=== PATIENT | male | born 1990 | race Caucasian/White ===

== ENCOUNTER 2025-10-02 19:32 | Emergency (ER) | payer MEDICARE, MEDICAID, SELFPAY ==
--- OUTSIDE RECORDS SUMMARY | 2025-09-28 01:27 | XMS_ITS | Encounter Summary ---
Author Organization [facility] Address [address] [place] [address] Care Team Providers Care Accounting Clerk Name Role Phone Unknown, Provider Primary Care Provider Unava ilable Reason for Visit * Reason Comments Wound Infection * Auth/Cert (Routine) Specialty Diagnoses / Procedures Referred By Contac t Referred To Contact Diagnoses . Procedures , Referral ID Status Reason Start Date Expiration Date Visits Re quested Visits Authorized [id number] 1 1 Encounter Details Date Type Department Care Team (Late st Contact Info) Description 09/28/2025 1:27 AM EST - 09/28/2025 12:35 PM [facility] Hospital Encounter [facility] Emergency Department [address] [place] [address] Bettina Zavala MD [address] [place] [id number] Van Arroyo MD [address] [address] Suicidal ideation (Primary Dx); Open wound of right heel, initial encounter; IVDU (intravenous drug user); Chest pain, unspecified type; Schizoaffective disorder, unspecified type ([facility]) Discharge Disposition: Psychiatric Hospital Social History Tobacco Use Types Packs/Day Years Used Date Smoking Tobacco: Never Assessed Tobacco Cessation:Counseling Given: Not Answered Comments:Unable to assess as patient is minimally engaged in evaluation. Humiliation, Afraid, Rape, and Kick questionnair e Answer Date Recorded Within the last year, have y ou been afraid of your partner or ex-partner? Yes 09/28/2025 Emotionally Abused Not on file 09/28/2025 Physically Abused Not on file 09/28/2025 Sexually Abused Not on file 09/28/2025 Overall Financial Resource Strain (CARDIA) Answe r Date Recorded How hard is it for you to pa y for the very basics like food, housing, medical care, and heating? Very hard 09/28/2025 Hunger Vital Sign Answer Date Recorded Within the past 12 months, y ou worried that your food would run out before you got the money to buy more. Sometimes true Ran Out of Food in the Last Year Not on file 09/28/2025 PRAPARE - Transportation Answer Date Re corded In the past 12 months, has l ack of transportation kept you from medical appointments or from getting medications? Yes 09/06 In the past 12 months, has l ack of transportation kept you from meetings, work, or from getting things needed for daily living? Yes 09/28/2025 Housing Stability Vital Sign Answer Marco A e Recorded In the last 12 months, was t here a time when you were not able to pay the mortgage or rent on time? Yes 09/28/2025 Number of Times Moved in the Last Year Not on fi le 09/28/2025 At any time in the past 12 m [facility], were you homeless or living in a prison (including now)? Yes 09/28/2025 [facility] Utilities Answer Date Recorded In the past 12 months has th e electric, gas, oil, or water company threatened to shut off services in your home? Already shut off 09/28/2025 Food Insecurity Answer Date Recorded Within the past 12 months, y ou worried that your food would run out before you got the money to buy more. Sometimes true Ran Out of Food in the Last Year Not on file 09/28/2025 Intimate Partner Violence Answer Date R ecorded Emotionally Abused Not on file 09/28/2025 Within the last year, have y ou been afraid of your partner or ex-partner? Yes 09/28/2025 Physically Abused Not on file 09/28/2025 Sexually Abused Not on file 09/28/2025 Housing Stability Answer Date Recorded Unstable Housing in the Last Year Not on file 09/28/2025 In the last 12 months, was t here a time when you were not able to pay the mortgage or rent on time? Yes 09/28/2025 [address] of [address] Lived in the Last Year Not on f ile 09/28/2025 Sex and Gender Information Value Date Recorded Sex Assigned at Male 09/28/2025 2:35 AM EST Legal Sex Male 3:48 PM EDT Gender Identity Male 09/28/2025 2:35 AM EST Sexual Orientation Straight 09/28/2025 2: 35 AM EST documented as of this encounter Last Filed Vital Signs Vital Sign Reading Time Taken Comments Blood Pressure 104/73 09/28/2025 7:51 AM EST Pulse 71 09/28/2025 7:51 AM EST Temperature 36.5 C (97.7 F) 09/28/2025 7:51 AM EST Respiratory Rate 16 09/28/2025 7:51 AM EST Oxygen Saturation 99% 09/28/2025 7:51 AM EST Inhaled Oxygen Concentration - - Weight - - Height - - Body Mass Index - - documented in this encounter Progress Notes * Joo Olsen - 09/28/2025 11:33 AM EST Behavioral Health Crisis Consult- Contact Note Patient: Hal Ennis : 1990 Admit Date: 09/28/2025 Date of Consult: 09/28/2025 Time of Consult: 11:33 AM Narrative: Patient: Hal Villarreal Accepting Facility: [facility] Facility Address: [address] [place] [address] Accepting MD: Dr Mendoza Arrival Time: next available Nurse to Nurse Report: all set Other Labs or Needs: N/A HCP/Guardian (if applicable): N/A Reason for Section 12: SI Information Given To: Via secure chat * Marietta Blackwell - 09/28/2025 8:48 AM EST Behavioral Health Crisis Consult- Contact Note Patient: Hal Ennis : 1990 Admit Date: 09/28/2025 Date of Consult: 09/28/2025 Time of Consult: 8:48 AM Narrative: Bed Search Inpatient Unit Referral Date Referral Time Began Review Date Began Review Time Accepted Date Accepted Time Decline Date Decline Time Reason If Decline Comment [facility] Accessible 09/28/25 8:05 AM EST no appropriate beds [facility] 09/28/25 8:05 AM EST [facility] Accessible 09/28/25 8:42 AM EST [facility] 09/28/25 8:42 AM EST [facility] 09/28/25 8:46 AM EST [facility] Accessible 09/28/25 8:46 AM EST [facility] 09/28/25 8:46 AM EST [facility] Accessible 09/28/25 8:46 AM EST [facility] Accessible 09/28/25 8:46 AM EST [facility] 09/28/25 8:46 AM EST [facility] Accessible 09/28/25 8:46 AM EST [facility] Accessible 09/28/25 8:46 AM EST [facility] Accessible 09/28/25 8:46 AM EST [facility] 09/28/25 8:46 AM EST [facility] 09/28/25 8:47 AM EST documented in this encounter Consult Notes * Odalys Granado [facility] - 09/28/2025 7:26 AM EST Behavioral Health Crisis Consult - Initial Assessment Patient: Hal Ennis : 1990 Admit Date: 09/28/2025 Date of Consult: 09/28/2025 Time of Consult: 7:26 AM Consult Requested by: Van Arroyo MD Reason for Consult: Reason for Consult: SI with plan to OD Chief Complaint Patient presents with Wound Infection History of Present Illness: Patient is a 35 y.o. male with past medical and psychiatric history as listed who presented to the hospital on 09/28/2025 for Wound Infection. Behavioral Health is consulted for +SI with plan to OD. The patient endorses CAH in addition to SI with plan to OD on illicit drugs. Prior SA via OD in May of 2025. Medical History: has no past medical history on file. has no past surgical history on file. Psychiatric History: History of psychiatric illness?: Yes History of suicidal ideation?: Yes History of non-suicidal self injury?: No History of interpersonal aggression?: No History of past ROBIN?: Yes Treatment History?: Yes Inpatient Treatment:: Inpatient Psych Current Providers?: No Collateral Contact: No Explain:: Patients provided collateral contact is the [place], [place] police department. Home Medications: Prescriptions Prior to Admission[1] Current Medications: Scheduled Medications[2] Current PRN: PRN Medications[3] Allergies: Patient has no known allergies. Substance Use History Alcohol: Substance and Sexual Activity Alcohol Use Not on file Alcohol Details Questions Responses Alcohol longest time sober Unable to assess as patient is minimally engaged in evaluation. In the past 12 months,have you had 5 or more drinks(men)/4 or more drinks (women) containing alcohol in one day?: No Tobacco: has no history on file for tobacco use. E-Cigarette/Vaping Devices Questions Responses Other Unable to assess as patient is minimally engaged in evaluation. Other: reports current drug use. Drugs: Benzodiazepines and Heroin. Addiction/Substance Use Substances last used: Within past 12 months In the past year, have you ever used drugs more than you wanted to?: Yes In the past year, have you ever felt you wanted or needed to cut down on your drug use?: Yes Prior treatment for addiction/substance use?: Yes Name/Facility Date Treatment Type [facility] May 2025 Inpatient Longest period of sobriety: 2 years - [id number] per chart records. Significant factors: Living with others who are active Describe significant factors: Patient is currently homeless, unsheltered. History of withdrawal symptoms: Agitation/Irritability, Anxiety Overdose history: Other (Comment) Describe overdose history: Details limited as patient is minimally engaged in evaluation. Relapse pattern: Frequent Consequences of addiction/substance use: Family, Medical, Physical, Social Have you ever witnessed an overdose?: No Have you ever administered Narcan?: No Have you had thoughts you might have a gambling problem, or been told you might?: no gambling addiction Additional comments about addiction/substance use: Details limited as patient is minimally engaged in evaluation. Prescription Medications: In the past 12 months,have you used any prescription medications just for the feeling, more than prescribed or that were no prescribed for you?: Yes Types of Medications:: Benzodiazepines Use/ frequency per week:: Details limited as patient is minimally engaged in evaluation. Substances: In the past 12 months, have you used any drugs?: Yes Drugs used:: Heroin Use/ frequency per week:: Details limited as patient is minimally engaged in evaluation. Medical and Psychiatric Consequences: Medical/Psychiatric Consequences:: Withdrawl symptoms Psychosocial Consequences: Psychosocial consequences:: Housing, Mental health, Family Social History: See below. Socioeconomic History Marital status: Single Number of children: 2 Social History Narrative Patient is currently homeless, unsheltered. Prior records indicate that he has one adult child and one minor child whom is in foster care. Employment Status: Data Unavailable Type of Residence: Homeless Children?: Yes Children's Age(s): One adult, one minor child whom is in foster care. Legal Issues (*Add to Legal History Navigator): Denies History: History [place] status: No Personal History: History of trauma/significant life events/NIKHIL?: Yes has no history on file for sexual activity. Family History: Family History[4] Family history of psychiatric illness?: No Family history of ROBIN?: No Family history of suicidal ideation, attempt or completed suicide?: No Physical Exam: Patient Vitals for the past 24 hrs: BP Temp Temp src Pulse Resp SpO2 09/28/25 0136 134/75 97.7 ??F (36.5 ??C) Oral 90 (!) 22 100 % Mental Status Exam: Mental Status Exam General Appearance: Appears stated age. Disheveled. Level of Consciousness: Lethargic. Orientation: Oriented to person and place. Attitude and Behavior: Disengaged. Eye Contact: Eye contact intermittent. Psychomotor Activity: Normal. Speech: Slow and soft. Mood: Patient description of mood: Depressed. Affect: Flat. Thought Process and Associations: Unable to asses. Thought Content: Positive for suicidal ideation, suicidal plan, suicidal intent, suicidal means, actively hallucinating, auditory hallucinations and command hallucinations. Attention Span: Unable to attend. Memory: Unable to assess. Fund of Knowledge: Unable to assess. Cognition: Unable to assess. Insight: Poor. Judgment: Poor. Labs, Imaging & Other Studies: Laboratory: Recent lab results have been reviewed and are notable for UTOX ordered. Results for orders placed or performed during the hospital encounter of 09/28/25 (from the past 24 hours) Basic Metabolic Panel Result Value Ref Range Sodium 142 136 - 145 mmol/L Potassium 3.6 3.5 - 5.1 mmol/L Chloride 106 98 - 107 mmol/L Total CO2/Bicarbonate 26 22 - 29 mmol/L Anion Gap 10 2 - 15 mmol/L BUN 25 (H) 6 - 20 mg/dL Creatinine, Blood 0.90 0.70 - 1.20 mg/dL Glucose, Blood 116 (H) 74 - 109 mg/dL Calcium 9.1 8.6 - 10.0 mg/dL Estimated GFR(CKD-EPI) 113 >=60 mL/min/BSA CBC and Differential Result Value Ref Range WBC 10.99 4.00 - 11.00 K/uL RBC 4.73 4.30 - 5.80 M/uL Hemoglobin 13.9 13.5 - 17.5 g/dL Hematocrit 42.5 41.0 - 53.0 % MCV 90 80 - 94 fL MCH 29.4 26.0 - 33.0 pg MCHC 32.7 31.0 - 37.0 g/dL RDW 13.8 11.5 - 14.5 % Platelet Count 239 150 - 400 K/uL Nucleated RBC 0 <=0 #/100 WBC Neutrophil 71.0 30.0 - 85.0 % Lymphocyte 18.1 15.0 - 50.0 % Monocyte 7.6 2.0 - 12.0 % Eosinophil 2.5 0.0 - 5.0 % Basophil 0.3 0.0 - 2.0 % Immature Granulocyte ([place], Myelo, Promyelocyte) 0.5 0.0 - 1.0 % Absolute Neutrophil Count 7.81 1.20 - 9.30 K/uL Absolute Lymphocyte Count 1.99 0.60 - 5.50 K/uL Absolute Monocyte Count 0.83 0.08 - 1.30 K/uL Absolute Eosinophil Count 0.28 0.00 - 0.68 K/uL Absolute Basophil Count 0.03 0.00 - 0.20 K/uL Absolute Immature Granulocyte ([place], Myelo, Promyelocyte) 0.05 0.00 - 0.10 K/uL Blood Bank Hold Tube Result Value Ref Range [place] Top Tube Received Magnesium Result Value Ref Range Magnesium, Blood 1.9 1.6 - 2.6 mg/dL Hs-Troponin (with reflex 0, 1, +/-3 hours) Result Value Ref Range Troponin T HS <6 <=22 ng/L C-Reactive Protein Result Value Ref Range C-Reactive Protein (CRP) 9.1 (H) <5.0 mg/L Toxicology Screen, Plasma Result Value Ref Range Acetaminophen Result,Blood <5 <=30 ug/mL Alcohol <10 <=10 mg/dL Salicylate Level, Blood <1 <=10 mg/dL Covid/Flu/RSV (Rapid) Result Value Ref Range Coronavirus SARS-CoV-2 Not Detected Not Detected Influenza A Not Detected Not Detected by PCR Influenza B Not Detected Not Detected by PCR RSV by PCR Not Detected Not Detected by PCR EKG: No studies were reviewed. C-SSRS Screener and SAFE-T: [place] Suicide Severity Rating Scale (C-SSRS) Screener 1) In the past month, have you wished you were or wished you could go to sleep and not wake up?: Yes If yes, describe (Past 1 Month): attempted OD 2) In the past month, have you actually had any thoughts of killing yourself?: Yes 3) Have you been thinking about how you might do this? (Past 1 Month): Yes 4) Have you had these thoughts and had some intention of acting on them or do you have some intention of acting on them? (Past 1 Month): Yes 5) Have you started to work out or worked out the details of how to kill yourself? Did you intend to carry out this plan? (Past 1 Month): Yes 6a.) Have you ever done anything, started to do anything, or prepared to do anything to end your life?: Yes If yes, describe: attempted OD 6b.) If 'Yes', was it within the past 3 months?: Yes C-SSRS Screener Risk Level: High History of Psychiatric Diagnosis:: ADHD, Alcohol/Substance Use Disorder, Mood disorder, Psychotic disorder Presenting Symptoms: Anhedonia, Command hallucinations, Hopelessness or despair, Impulsivity, Psychosis Family History: Unable to assess Precipitants/ Stressors/ Interpersonal: Homelessness, History of trauma, Precipitating events or recent losses leading to humiliation, shame, and/or despair (e.g. loss of relationship, financial or health status... real or anticipated), Recent substance intoxication or withdrawal, Social isolation Change in Treatment: Not receiving treatment, Non-compliant with treatment Access to lethal methods: Ask specifically about presence or absence of a firearm in the home or ease of accessing: No Step 2: Identify Protective Factors (Protective factors may not counteract significant acute suicide risk factors) Internal Protective Factors: None External Protective Factors: None Step 3: Specific questioning about Thoughts, Plans, and Suicidal Intent - (see Step 1 for Ideation Severity and Behavior) In the past 1 month, how many times have you had these thoughts?: Daily or almost daily In the past 1 month, when you have the thoughts, how long do they last?: 4-8 hours/most of day In the past 1 month, could/can you stop thinking about killing yourself or wanting to if you want to?: Unable to control thoughts In the past 1 month, are there things - anyone or anything (e.g., family, religious, pain of ) - that stopped you from wanting to or acting on thoughts of suicide?: Deterrents most likely didnot stop you In the past 1 month, what reasons did you have for thinking about wanting to or killing yourself? Was it to end the pain or stop the way you were feeling, or was it to get attention, revenge, or reaction from others? Or both?: Completely to end or stop the pain (you couldn't go on living with the pain you were feeling) Suicidal Ideation Intensity Total Score: 22 Step 4: Guidelines to Determine Level of Risk and Develop Interventions to LOWER Risk Level Suicide Risk Level Determined by the Clinician : High Suicide Risk Rationale for Suicide Risk Level: High suicide risk clinically indicated at the present time. Management of Suicide Risk: Because the patient is actively suicidal, the patient will be further assessed for psychiatric inpatient level of care Assessment: Patient is a 35 y.o. male with past medical and psychiatric history as above now presents with SI with plan to OD. The patient presented to [facility] ED via EMS from the [facility] secondary to foot pain, heart palpitations, and endorsed CAH/SI with plan to OD. The patient carries a historical diagnosis of Schizoaffective Disorder with a prior history of inpatient psychiatric hospital admissions. The patient denies HI/VH/SIB. He denies recent trauma and legal issues. He does state that he has been overusing illicit Opiates and Benzodiazepines, however he is unable to quantify how much he is using or how often he is using at this time. The patient presents as minimally engaged in the evaluation. He presents with flat affect and depressed mood. Insight and judgment present as poor. The patient is unable to engage in safety planning.He states I do not want to be here. He states that he experiences CAH that say I do not belong here and I should be . The patient continues to endorse active SI with plan to OD. Per his record, he did attempt suicide in May of 2025 via overdose on Hydroxyzine and Zyprexa. The patient is not maintained on any medication assisted treatment for Opiate abuse. The patient presents as AOX2, his eye contact is intermittent. Speech and language is soft and slow. Concentration is poor - he is able to intermittently attend. The patients listed collateral contact is the [place] police department, however they are not currently involved in the patients care,thus no collateral was obtained. At this time the patient meets criteria for Section 12 due to SI with plan to OD and reported CAH. He does not present with any overt psychotic symptoms at this time. Clinical formulation supported by ED MD Van Arroyo and Clinical Director Business Integration Holli ALBRECHT. Recommendations: [facility] Intervention and Stabilization Services Requested: Psych consult for med stabilization, Psych consult for diagnostic clarification, Care coordination/peer support service, and ROBIN consult Disposition Recommendation: Inpatient Level of Care Patient meets criteria for opioid use disorder (OUD): No Behavioral Health Diagnosis: F25.9 Schizoaffective Disorder, Unspecified F19.10 Polysubstance Use Disorder Duration: Time Spent (min): 120 Discussed with Excelsior Cutter: Yes, Excelsior Cutter Name: Holli ALBRECHT Discussed with Medical Team: Yes . ED MD Van Arroyo Signed by: TRENA Cevallos [1] (Not in a hospital admission) [2] doxycycline monohydrate, 100 mg, Oral, BID [3] [4] Family History Family history unknown: Yes documented in this encounter ED Notes * Charline Soler RN - 09/28/2025 11:57 AM EST Pt eating lunch in room, in nad. Aware that he will be transferred via next available ambulance. Verbalized understanding. Denies any further needs at this time. 1:1 sitter in direct LOS of pt. Pt calm, cooperative, pleasant. * Charline Soler RN - 09/28/2025 10:31 AM EST Pt resting in stretcher comfortably, eyes closed, visible chest rise and fall. Pt cooperative with care thus far on this shift. Compliant with medications and cooperative with all care. Vitals stableat last check. Able to make needs known. Safety precautions maintained, 1:1 observer in direct LOS. * TRENA Cevallos - 09/28/2025 8:09 AM EST Notified MARIANA Aguero and [facility] via [employer] chat that this patient is boarding for [facility]. * Yasmeen Triplett RN - 09/28/2025 1:35 AM EST [facility]. Pt reports 9/10 pain to R heel. Pt wasseen at [facility] yesterday for same issue where pt received doxycycline for infection. Pt endorses intermittent CP feeling like palpitations. * Frank Kenney MD - 09/28/2025 1:23 AM EST [facility] ED Provider Note Arrival Date: 09/28/2025 HISTORY OF PRESENT ILLNESS 34-year-old male with a past medical history of polysubstance abuse, endocarditis, bipolar affective disorder, presents to the ED for evaluation of 2 days of chest pain and right foot pain. Patient states he has had intermittent chest pain for the past year he was seen for this in the past and was told he has an abnormal heart rhythm. The current episode of chest pain began 2 days ago located across his chest. Patient also states that he had a painful blister on the heel of his right foot yesterday. Per pt, he was seen at [facility] yesterday for chest pain and was started on doxycycline. Patient states he is detoxing from benzodiazepines and planned to go to rehab tomorrow. He also reports SI with a plan to overdose, reports life stressors with his girlfriend. Patient reports a prior SI attempt1-1/2 months ago by overdosing on fentanyl. He denies any HI. PHYSICAL EXAM ED Triage Vitals [09/28/25 0136] BP Heart Rate Resp Temp SpO2 134/75 90 (!) 22 97.7 ??F (36.5 ??C) 100 % Physical Exam Constitutional: General: He is not in acute distress. HENT: Head: Normocephalic and atraumatic. Eyes: Extraocular Movements: Extraocular movements intact. Cardiovascular: Rate and Rhythm: Normal rate and regular rhythm. Pulmonary: Effort: Pulmonary effort is normal. No respiratory distress. Breath sounds: Normal breath sounds. Musculoskeletal: Cervical back: Normal range of motion. Comments: Diffuse right foot swelling. 5 x 5 cm area of erythema on the right heel with a central area of dried purulent material. See media. Neurological: Mental Status: He is alert. MEDICAL DECISION MAKING & ED COURSE Labs BASIC METABOLIC PANEL - Abnormal Result Value Ref Range Sodium 142 136 - 145 mmol/L Potassium 3.6 3.5 - 5.1 mmol/L Chloride 106 98 - 107 mmol/L Total CO2/Bicarbonate 26 22 - 29 mmol/L Anion Gap 10 2 - 15 mmol/L BUN 25 (*) 6 - 20 mg/dL Creatinine, Blood 0.90 0.70 - 1.20 mg/dL Glucose, Blood 116 (*) 74 - 109 mg/dL Calcium 9.1 8.6 - 10.0 mg/dL Estimated GFR(CKD-EPI) 113 >=60 mL/min/BSA C-REACTIVE PROTEIN - Abnormal C-Reactive Protein (CRP) 9.1 (*) <5.0 mg/L CBC AND DIFFERENTIAL - Normal WBC 10.99 4.00 - 11.00 K/uL RBC 4.73 4.30 - 5.80 M/uL Hemoglobin 13.9 13.5 - 17.5 g/dL Hematocrit 42.5 41.0 - 53.0 % MCV 90 80 - 94 fL MCH 29.4 26.0 - 33.0 pg MCHC 32.7 31.0 - 37.0 g/dL RDW 13.8 11.5 - 14.5 % Platelet Count 239 150 - 400 K/uL Nucleated RBC 0 <=0 #/100 WBC Neutrophil 71.0 30.0 - 85.0 % Lymphocyte 18.1 15.0 - 50.0 % Monocyte 7.6 2.0 - 12.0 % Eosinophil 2.5 0.0 - 5.0 % Basophil 0.3 0.0 - 2.0 % Immature Granulocyte ([place], Myelo, Promyelocyte) 0.5 0.0 - 1.0 % Absolute Neutrophil Count 7.81 1.20 - 9.30 K/uL Absolute Lymphocyte Count 1.99 0.60 - 5.50 K/uL Absolute Monocyte Count 0.83 0.08 - 1.30 K/uL Absolute Eosinophil Count 0.28 0.00 - 0.68 K/uL Absolute Basophil Count 0.03 0.00 - 0.20 K/uL Absolute Immature Granulocyte ([place], Myelo, Promyelocyte) 0.05 0.00 - 0.10 K/uL MAGNESIUM - Normal Magnesium, Blood 1.9 1.6 - 2.6 mg/dL HS TROPONIN T (REFLEX 1HR, 3HR) - Normal Troponin T HS <6 <=22 ng/L SARS COV2/INFLUENZA A/B AND RSV - Normal Coronavirus SARS-CoV-2 Not Detected Not Detected Influenza A Not Detected Not Detected by PCR Influenza B Not Detected Not Detected by PCR RSV by PCR Not Detected Not Detected by PCR Narrative: The Indisys Xpert?? SARS-CoV-2/ Flu/ RSV assay is intended for the qualitative detection of nucleicacid from SARS-CoV-2, Influenza A, Influenza B, and Respiratory Syncytial Virus. This assay has been authorized by the FDA under an Emergency Use Authorization (EUA) for use by clinical laboratories.Negative results must be combined with clinical observations and patient history. This assay has been authorized by the FDA under an Emergency Use Authorization (EUA) for use by clinical laboratories. TOXICOLOGY SCREEN, BLOOD - Normal Acetaminophen Result,Blood <5 <=30 ug/mL Alcohol <10 <=10 mg/dL Salicylate Level, Blood <1 <=10 mg/dL BLOOD BANK HOLD TUBE [place] Top Tube Received LIGHT BLUE TOP RED TOP MINT GREEN TOP LAVENDER TOP GOLD TOP DRUG SCREEN, URINE CBC AND DIFFERENTIAL Narrative: The following orders were created for panel order CBC and Differential. Procedure Abnormality Status --------- ------ CBC and Differential[[id number]] Normal Final result Please view results for these tests on the individual orders. RAINBOW DRAW Narrative: The following orders were created for panel order [place] Draw. Procedure Abnormality Status --------- ------ Blue Top[[id number]] In process Red Top[[id number]] In process Mint Green Top[[id number]] In process Lavender Top[[id number]] In process Gold Top[[id number]] In process Blood Bank Hold Tube[[id number]] Final result Please view results for these tests on the individual orders. XR Chest 1 Vw Portable XR Foot 3+ Vw Right XR Ankle 3+ Vw Right Independent Interpretation of ECG: Normal sinus rhythm at 84 bpm normal axis normal intervals no STelevations or depressions. No prior for comparison. 35-year-old male with a past medical history of polysubstance use, endocarditis, presents to the EDfor evaluation of 2 days of chest pain and right foot pain. Differential diagnosis includes ACS, endocarditis, GERD, cellulitis, osteomyelitis, abscess. Will obtain CBC BMP magnesium CRP urine and serum tox screen troponin, COVID flu RSV test chest x-ray as well as right foot and ankle radiographs.CBC and BMP are unremarkable. Elevated CRP of 9.1. Negative initial troponin. COVID flu and RSV arenegative. Radiographs of the right foot and ankle show no radiographic evidence of osteomyelitis. Chest x-ray is negative. Patient given Tylenol and Ativan 0.05. Will give doxycycline for heel wound.On reevaluation chest pain has resolved. Patient is medically cleared for psychiatric evaluation. Will sign out to a.m. team. [facility] Emergency Department Course: ED Course as of 09/28/25 0627 SunSep 28, 2025 0231 CBC and Differential [GJ] 0327 XR Chest 1 Vw Portable [GJ] 0327 XR Foot 3+ Vw Right [GJ] 0327 XR Ankle 3+ Vw Right [GJ] 0330 I independently reviewed and interpreted this patient's EKG and it shows nsr rate 84 normal ax/int. No stemi. [GJ] 0352 XR Chest 1 Vw Portable No imaging evidence of an acute cardiopulmonary process. [AH] 0548 Magnesium [GJ] 0549 C-Reactive Protein(!) [GJ] 0614 C-Reactive Protein (CRP)(!): 9.1 [AH] 0618 XR Ankle 3+ Vw Right Soft tissue defect of the heel. Diffuse soft tissue swelling about the foot, most prominent along the lateral forefoot, similar to slightly worsened since 09/18/2025. No radiographic evidence of osteomyelitis. If continued clinical concern, consider MRI examination of the foot. [AH] 0618 XR Chest 1 Vw Portable No imaging evidence of an acute cardiopulmonary process. [AH] 0618 XR Foot 3+ Vw Right [AH] ED Course User Index [AH] Frank Kenney MD [GJ] Bettina Zavala MD Clinical Impression Suicidal ideation (Primary) Open wound of right heel, initial encounter IVDU (intravenous drug user) Chest pain, unspecified type Frank Kenney MD Resident 09/28/25626 Frank Kenney MD Resident 09/28/25626 documented in this encounter Plan of Treatment Pending Results Name Type Priority Associated Diagnoses Date /Time [place] Draw Lab Panel STAT 09/28/2025 2 :26 AM EST Blue Top Lab STAT 09/28/2025 2:2 6 AM EST Red Top Lab STAT 09/28/2025 2:2 6 AM EST Mint Green Top Lab STAT 09/28/2025 2:26 AM EST Lavender Top Lab STAT 09/28/2025 2 :26 AM EST Gold Top Lab STAT 09/28/2025 2:2 6 AM EST Scheduled Orders Name Type Priority Associated Diagnoses Orde r Schedule [place] Draw Lab Panel STAT Once for 1 O ccurrences starting 09/28/2025 until 09/28/2025 Blue Top Lab Timed Once for 1 Occ urrences starting 09/28/2025 until 09/28/2025, 1 completed Red Top Lab Timed Once for 1 Occ urrences starting 09/28/2025 until 09/28/2025, 1 completed [place] Top Lab Timed Once for 1 Occurrences starting 09/28/2025 until 09/28/2025, 1 completed Lavender Top Lab Timed Once for 1 O ccurrences starting 09/28/2025 until 09/28/2025, 1 completed Gold Top Lab Timed Once for 1 Occ urrences starting 09/28/2025 until 09/28/2025, 1 completed documented as of this encounter Procedures Procedure Name Priority Date/Time Associated Diagnosis Comments XR PORTABLE CHEST 1 VW STAT 09/28/2025 3:04 AM EST SARS COV2/INFLUENZA A/B AND RSV STAT 09/28/2025 2:58 AM EST XR FOOT 3+ VW RIGHT STAT 09/28/2025 2 :57 AM EST XR ANKLE 3+ VW RIGHT STAT 09/28/2025 2:57 AM EST ECG 12-LEAD STAT 09/28/2025 2:38 AM EST HS TROPONIN T (REFLEX 1HR, 3HR) Routine 09/28/2025 2:26 AM EST CBC AND DIFFERENTIAL STAT 09/28/2025 2:26 AM EST TOXICOLOGY SCREEN, BLOOD STAT 09/28/2025 2:26 AM EST BLOOD BANK HOLD TUBE STAT 09/28/2025 2:26 AM EST CBC AND DIFFERENTIAL STAT 09/28/2025 2:26 AM EST C-REACTIVE PROTEIN STAT 09/28/2025 2: 26 AM EST MAGNESIUM Routine 09/28/2025 2:26 AM EST BASIC METABOLIC PANEL STAT 09/28/2025 2:26 AM EST documented in this encounter Results * XR Chest 1 Vw Portable (09/28/2025 3:04 AM EST) Anatomical Region Laterality Modality Chest Digital Radiogra phy 09/28/2025 3:23 AM EST Impressions 09/28/2025 6:50 AM EST No imaging evidence of an acute cardiopulmonary process. I, the attending physician, attest that I have performed and/or supervised the resident for the ellsworth and critical components of this procedure. I have personally reviewed the images pertinent to this examination and agree with the interpretation. Reported By: Luke Crowley M.D. ([id number]) Signed By: Angel Luis Pina M.D. ([id number]) Report Date/Time: 09/28/2025 6:50 AM Report ID: [id number] Narrative 09/28/2025 6:50 AM EST RESPONSIBLE TECHNICAL COMMUNICATOR: Angel Luis Pina M.D. EXAMINATION: XR CHEST 1 VW PORTABLE CLINICAL INDICATION: Chest pain TECHNIQUE: AP upright projection of the chest obtained portably at 3:01. COMPARISON: None available FINDINGS: Lungs: There is no consolidation or pulmonary edema. Relative density of the left apex is favored to reflect superimposed costochondral junction and soft tissues. Pleura: There is no pleural effusion or pneumothorax. Heart/Mediastinum: The cardiomediastinal silhouette is unremarkable. Bones/Soft Tissues: Normal for age. Procedure Note Lacho Pina MD - 09/28/2025 RESPONSIBLE TECHNICAL COMMUNICATOR: Angel Luis Pina M.D. EXAMINATION: XR CHEST 1 VW PORTABLE CLINICAL INDICATION: Chest pain TECHNIQUE: AP upright projection of the chest obtained portably at 3:01. COMPARISON: None available FINDINGS: Lungs: There is no consolidation or pulmonary edema. Relative density ofthe left apex is favored to reflect superimposed costochondral junctionand soft tissues. Pleura: There is no pleural effusion or pneumothorax. Heart/Mediastinum: The cardiomediastinal silhouette is unremarkable. Bones/Soft Tissues: Normal for age. IMPRESSION: No imaging evidence of an acute cardiopulmonary process. I, the attending physician, attest that I have performed and/or supervised the resident for the ellsworth and critical components of this procedure. I have personally reviewed the images pertinent to this examination and agree with the interpretation. Reported By: Luke Crowley M.D. ([id number]) Signed By: Angel Luis Pina M.D. ([id number]) Report Date/Time: 09/28/2025 6:50 AM Report ID: [id number] us Bettina Zavala MD IMG DIAGNOSTIC IMAGING OR DERABLES Final Result * Covid/Flu/RSV (Rapid) (09/28/2025 2:58 AM EST) Coronavirus SARS-CoV-2 Not Detected Not Detected 09/28/2025 3:39 AM EST [facility] Influenza A Not Detected Not Detected by PCR 09/28/2025 3:39 AM EST [facility] Influenza B Not Detected Not Detected by PCR 09/28/2025 3:39 AM EST [facility] RSV by PCR Not Detected Not Detected by PCR 09/28/2025 3:39 AM EST [facility] Respiratory SWAB OF INTERNAL NOSE / Unknown Collection / Unknown 09/28/2025 2:58 AM EST 09/28/2025 3:00 AM EST Narrative [facility] - 09/28/2025 3:39 AM EST The Indisys Xpert SARS-CoV-2/ Flu/ RSV assay is intended for the qualitative detection of nucleic acid from SARS-CoV-2, Influenza A, Influenza B, and Respiratory Syncytial Virus. This assay has been authorized by the FDA under an Emergency Use Authorization (EUA) for use by clinical laboratories. Negative results must be combined with clinical observations and patient history. This assay has been authorized by the FDA under an Emergency Use Authorization (EUA) for use by clinical laboratories. us Bettina Zavala MD BODY FLUIDS AND STOOLS OR DERABLES Final Result [facility] [address] [place] [address], [place] * XR Foot 3+ Vw Right (09/28/2025 2:57 AM EST) Anatomical Region Laterality Modality Foot Right Digital Radiogra phy 09/28/2025 3:16 AM EST Impressions 09/28/2025 6:51 AM EST Soft tissue defect of the heel. Diffuse soft tissue swelling about the foot, most prominent along the lateral forefoot, similar to slightly worsened since 09/18/2025. No radiographic evidence of osteomyelitis. If continued clinical concern, consider MRI examination of the foot. I, the attending physician, attest that I have performed and/or supervised the resident for the [place] and critical components of this procedure. I have personally reviewed the images pertinent to this examination and agree with the interpretation. Reported By: Luke Crowley M.D. ([id number]) Signed By: Angel Luis Pina M.D. ([id number]) Report Date/Time: 09/28/2025 6:51 AM Report ID: [id number] Narrative 09/28/2025 6:51 AM EST RESPONSIBLE TECHNICAL COMMUNICATOR: Angel Luis Pina M.D. EXAMINATION: XR ANKLE 3+ VW RIGHT; XR FOOT 3+ VW RIGHT CLINICAL INDICATION: Right foot swelling and infection TECHNIQUE: Three views of the right ankle. Three views of the right foot. COMPARISON: Outside right foot radiograph dated 09/18/2025. Outside CT of the right foot with intravenous contrast dated 09/18/2025 (report only). FINDINGS: The distal tibia and fibula, the tibiotalar joint and the talar dome are normal. The phalanges, metatarsal bones, tarsal bones, hindfoot and intervening joints are intact without erosive changes. There is diffuse soft tissue swelling about the foot, most prominent along the lateral forefoot, similar to slightly worsened since 09/18/2025. There is a soft tissue defect of the heel. No evidence of erosive change of the underlying calcaneus. Procedure Note Lacho Pina MD - 09/28/2025 RESPONSIBLE TECHNICAL COMMUNICATOR: Angel Luis Pina M.D. EXAMINATION: XR ANKLE 3+ VW RIGHT; XR FOOT 3+ VW RIGHT CLINICAL INDICATION: Right foot swelling and infection TECHNIQUE: Three views of the right ankle. Three views of the right foot. COMPARISON: Outside right foot radiograph dated 09/18/2025. Outside CT of the right foot with intravenous contrast dated 09/18/2025(report only). FINDINGS: The distal tibia and fibula, the tibiotalar joint and the talar dome arenormal. The phalanges, metatarsal bones, tarsal bones, hindfoot and interveningjoints are intact without erosive changes. There is diffuse soft tissue swelling about the foot, most prominent alongthe lateral forefoot, similar to slightly worsened since 09/18/2025. There is a soft tissue defect of the heel. No evidence of erosive changeof the underlying calcaneus. IMPRESSION: Soft tissue defect of the heel. Diffuse soft tissue swelling about thefoot, most prominent along the lateral forefoot, similar to slightlyworsened since 09/18/2025. No radiographic evidence of osteomyelitis. If continued clinical concern,consider MRI examination of the foot. I, the attending physician, attest that I have performed and/or supervised the resident for the ellsworth and critical components of this procedure. I have personally reviewed the images pertinent to this examination and agree with the interpretation. Reported By: Luke Crowley M.D. ([id number]) Signed By: Angel Luis Pina M.D. ([id number]) Report Date/Time: 09/28/2025 6:51 AM Report ID: [id number] Bettina Zavala MD IMG DIAGNOSTIC IMAGING OR DERABLES Final Result * XR Ankle 3+ Vw Right (09/28/2025 2:57 AM EST) Anatomical Region Laterality Modality Ankle Right Digital Radiogra phy 09/28/2025 3:16 AM EST Impressions 09/28/2025 6:51 AM EST Soft tissue defect of the heel. Diffuse soft tissue swelling about the foot, most prominent along the lateral forefoot, similar to slightly worsened since 09/18/2025. No radiographic evidence of osteomyelitis. If continued clinical concern, consider MRI examination of the foot. I, the attending physician, attest that I have performed and/or supervised the resident for the ellsworth and critical components of this procedure. I have personally reviewed the images pertinent to this examination and agree with the interpretation. Reported By: Luke Crowley M.D. ([id number]) Signed By: Angel Luis Pina M.D. ([id number]) Report Date/Time: 09/28/2025 6:51 AM Report ID: [id number] Narrative 09/28/2025 6:51 AM EST RESPONSIBLE TECHNICAL COMMUNICATOR: Angel Luis Pina M.D. EXAMINATION: XR ANKLE 3+ VW RIGHT; XR FOOT 3+ VW RIGHT CLINICAL INDICATION: Right foot swelling and infection TECHNIQUE: Three views of the right ankle. Three views of the right foot. COMPARISON: Outside right foot radiograph dated 09/18/2025. Outside CT of the right foot with intravenous contrast dated 09/18/2025 (report only). FINDINGS: The distal tibia and fibula, the tibiotalar joint and the talar dome are normal. The phalanges, metatarsal bones, tarsal bones, hindfoot and intervening joints are intact without erosive changes. There is diffuse soft tissue swelling about the foot, most prominent along the lateral forefoot, similar to slightly worsened since 09/18/2025. There is a soft tissue defect of the heel. No evidence of erosive change of the underlying calcaneus. Procedure Note Lacho Pina MD - 09/28/2025 RESPONSIBLE TECHNICAL COMMUNICATOR: Angel Luis Pina M.D. EXAMINATION: XR ANKLE 3+ VW RIGHT; XR FOOT 3+ VW RIGHT CLINICAL INDICATION: Right foot swelling and infection TECHNIQUE: Three views of the right ankle. Three views of the right foot. COMPARISON: Outside right foot radiograph dated 09/18/2025. Outside CT of the right foot with intravenous contrast dated 09/18/2025(report only). FINDINGS: The distal tibia and fibula, the tibiotalar joint and the talar dome arenormal. The phalanges, metatarsal bones, tarsal bones, hindfoot and interveningjoints are intact without erosive changes. There is diffuse soft tissue swelling about the foot, most prominent alongthe lateral forefoot, similar to slightly worsened since 09/18/2025. There is a soft tissue defect of the heel. No evidence of erosive changeof the underlying calcaneus. IMPRESSION: Soft tissue defect of the heel. Diffuse soft tissue swelling about thefoot, most prominent along the lateral forefoot, similar to slightlyworsened since 09/18/2025. No radiographic evidence of osteomyelitis. If continued clinical concern,consider MRI examination of the foot. I, the attending physician, attest that I have performed and/or supervised the resident for the ellsworth and critical components of this procedure. I have personally reviewed the images pertinent to this examination and agree with the interpretation. Reported By: Luke Crowley M.D. ([id number]) Signed By: Angel Luis Pina M.D. ([id number]) Report Date/Time: 09/28/2025 6:51 AM Report ID: [id number] Bettina Zavala MD IMG DIAGNOSTIC IMAGING OR DERABLES Final Result * ECG 12 lead, to be obtained, chest pain (09/28/2025 2:38 AM EST) Ventricular Heart Rate 84 BPM EKG B[facility] MUSE Atrial Heart Rate 84 BPM EKG [facility] NM Interval 132 ms EKG [facility] M[facility] QRSD Interval 92 ms EKG [facility] MUSE QT Interval 386 ms EKG [facility] MUSE QTC Interval 456 ms EKG B[facility] MUSE P [place] 56 degrees EKG BUR MUSE R [place] 77 degrees EKG BUR MUSE T Wave [place] 42 degrees EKG BUR MUSE 09/28/2025 2:38 AM EST 09/29/2025 5:01 PM EST Narrative EKG B[facility] MUSE - 09/29/2025 5:01 PM EST Normal sinus rhythm Normal ECG No previous ECGs available Confirmed by Ezequiel Huston ([id number]) on 09/29/2025 5:01:28 PM Procedure Note Ezequiel Huston MD - 09/29/2025 Normal sinus rhythm Normal ECG No previous ECGs available Confirmed by Ezequiel Huston ([id number]) on 09/29/2025 5:01:28 PM Bettina Zavala MD ECG ORDERABLES Final Res ult EKG BUR MUSE [address] [place] [id number] * Toxicology Screen, Plasma (09/28/2025 2:26 AM EST) Acetaminophen Result,Blood <5 <=30 ug/mL 09/28/2025 5:46 AM EST [facility] Alcohol <10 <=10 mg/dL 09/28/2025 5:46 AM EST [facility] Salicylate Level, Blood <1 <=10 mg/dL 09/28/2025 5:46 AM EST [facility] Blood PERIPHERAL BLOOD SPECIMEN / Unknown Venipuncture / Unknown 09/28/2025 2:26 AM EST 09/28/2025 3:54 AM EST us Bettina Zavala MD LAB BLOOD ORDERABLES Leyla l Result Performing Organization Address City/[facility]/ZIP Co de Phone Number [facility] [address] [place] [address], [place] * (ABNORMAL) C-Reactive Protein (09/28/2025 2:26 AM EST) C-Reactive Protein (CRP) 9.1(H) <5.0 mg/L 09/28/2025 5:46 AM EST [facility] Blood PERIPHERAL BLOOD SPECIMEN / Unknown Venipuncture / Unknown 09/28/2025 2:26 AM EST 09/28/2025 3:54 AM EST us Bettina Zavala MD LAB BLOOD ORDERABLES Leyla l Result Performing Organization Address [facility] Co de Phone Number [facility] [address] [place] [id number], [place] * Hs-Troponin (with reflex 0, 1, +/-3 hours) (09/28/2025 2:26 AM EST) Troponin T HS <6 <=22 ng/L 09/28/2025 5:52 AM EST [facility] Blood PERIPHERAL BLOOD SPECIMEN / Unknown Venipuncture / Unknown 09/28/2025 2:26 AM EST 09/28/2025 3:54 AM EST us Bettina Zavala MD LAB BLOOD ORDERABLES Leyla l Result Performing Organization Address City/[facility]/ZIP Co de Phone Number [facility] [address] [place] [address], [place] * Magnesium (09/28/2025 2:26 AM EST) Pathologist [facility] Magnesium, Blood 1.9 1.6 - 2.6 mg/dL 09/28/2025 5:46 AM EST [facility] Blood PERIPHERAL BLOOD SPECIMEN / Unknown Venipuncture / Unknown 09/28/2025 2:26 AM EST 09/28/2025 3:54 AM EST Bettina Zavala MD LAB BLOOD ORDERABLES Leyla l Result [facility] [address] [place] [address], [place] * Blood Bank Hold Tube (09/28/2025 2:26 AM EST) Pathologist [facility] [place] Top Tube Received 09/28/2025 2:58 AM EST [facility] Blood Venipuncture / Unknown 09/28/2025 2:26 AM EST 09/28/2025 2:58 AM EST Bettina Zavala MD BLOOD BANK TEST ORDERABLE S Final Result Performing Organization Address City/[facility] Co de Phone Number [facility] [address] [place] [address], * CBC and Differential (09/28/2025 2:26 AM EST) [facility] WBC 10.99 4.00 - 11.00 K/uL 09/28/2025 2:30 AM [facility] RBC 4.73 4.30 - 5.80 M/uL 09/28/2025 2:30 AM [facility] Hemoglobin 13.9 13.5 - 17.5 g/dL 09/28/2025 2:30 AM [facility] Hematocrit 42.5 41.0 - 53.0 % 09/28/2025 2:30 AM [facility] MCV 90 80 - 94 fL 09/28/2025 2:30 AM [facility] MCH 29.4 26.0 - 33.0 pg 09/28/2025 2:30 AM [facility] MCHC 32.7 31.0 - 37.0 g/dL 09/28/2025 2:30 AM [facility] RDW 13.8 11.5 - 14.5 % 09/28/2025 2:30 AM [facility] Platelet Count 239 150 - 400 K/uL 09/28/2025 2:30 AM [facility] Nucleated RBC 0 <=0 #/100 WBC 09/28/2025 2:30 AM [facility] Neutrophil 71.0 30.0 - 85.0 % 09/28/2025 2:30 AM [facility] Lymphocyte 18.1 15.0 - 50.0 % 09/28/2025 2:30 AM [facility] Monocyte 7.6 2.0 - 12.0 % 09/28/2025 2:30 AM [facility] Eosinophil 2.5 0.0 - 5.0 % 09/28/2025 2:30 AM [facility] Basophil 0.3 0.0 - 2.0 % 09/28/2025 2:30 AM [facility] Immature Granulocyte ([place], Myelo, Promyelocyte) 0.5 0.0 - 1.0 % 09/28/2025 2:30 AM [facility] Absolute Neutrophil Count 7.81 1.20 - 9.30 K/uL 09/28/2025 2:30 AM [facility] Absolute Lymphocyte Count 1.99 0.60 - 5.50 K/uL 09/28/2025 2:30 AM [facility] Absolute Monocyte Count 0.83 0.08 - 1.30 K/uL 09/28/2025 2:30 AM [facility] Absolute Eosinophil Count 0.28 0.00 - 0.68 K/uL 09/28/2025 2:30 AM [facility] Absolute Basophil Count 0.03 0.00 - 0.20 K/uL 09/28/2025 2:30 AM [facility] Absolute Immature Granulocyte ([place], Myelo, Promyelocyte) 0.05 0.00 - 0.10 K/uL 09/28/2025 2:30 AM [facility] Blood PERIPHERAL BLOOD SPECIMEN / Unknown Venipuncture / Unknown 09/28/2025 2:26 AM EST 09/28/2025 2:26 AM EST us Bettina Zavala MD LAB BLOOD ORDERABLES Leyla l Result [facility] [address] [place] [address], [place] * (ABNORMAL) Basic Metabolic Panel (09/28/2025 2:26 AM EST) Sodium 142 136 - 145 mmol/L 09/28/2025 2:57 AM EST [facility] Potassium 3.6 3.5 - 5.1 mmol/L 09/28/2025 2:57 AM EST [facility] Chloride 106 98 - 107 mmol/L 09/28/2025 2:57 AM [facility] Total CO2/Bicarbonat e 26 22 - 29 mmol/L 09/28/2025 2:57 AM [facility] Anion Gap 10 2 - 15 mmol/L 09/28/2025 2:57 AM [facility] BUN 25(H) 6 - 20 mg/dL 09/28/2025 2:57 AM [facility] Creatinine, Blood 0.90 0.70 - 1.20 mg/dL 09/28/2025 2:57 AM [facility] Glucose, Blood 116(H) 74 - 109 mg/dL 09/28/2025 2:57 AM [facility] Calcium 9.1 8.6 - 10.0 mg/dL 09/28/2025 2:57 AM [facility] Estimated GFR(CKD-EPI) 113 >=60 mL/min/BSA 09/28/2025 2:57 AM [facility] Blood PERIPHERAL BLOOD SPECIMEN / Unknown Venipuncture / Unknown 09/28/2025 2:26 AM EST 09/28/2025 2:26 AM EST us Bettina Zavala MD LAB BLOOD ORDERABLES Leyla l Result [facility] [address] [place] [address], documented in this encounter Visit Diagnoses Diagnosis Suicidal ideation- Primary Open wound of right heel, initial encounter IVDU (intravenous drug user) Other, mixed, or unspecified nondependent drug abuse, unspecified Chest pain, unspecified type Schizoaffective disorder, unspecified type ([facility]) documented in this encounter Administered Medications Inactive Administered Medications - up to 3 most recent administrations Medication Order MAR Action Action Date Dose Rate Site acetaminophen (TYLENOL) tablet 650 mg 650 mg, Oral, Once, 1 dose, On Sun09/28/25 at 0300 Given 09/28/2025 2:56 AM EST 650 mg doxycycline monohydrate (MONODOX) capsule 100 mg 100 mg, Oral, 2 times daily, 10 doses, First dose on Sun09/28/25 at 0900, Last dose on Sun10/02/25 at 2100, Administer at least 2 hours before or 6 hours after oral calcium, magnesium, zinc, and other iron containing products. Give with food if GI upset occurs., Indication: Skin and Soft Tissue Infection, Routine Given 09/28/2025 9:46 AM EST 100 mg LORazepam (ATIVAN) tablet 0.5 mg 0.5 mg, Oral, Once, 1 dose, On Sun09/28/25 at 0330 Given 09/28/2025 3:21 AM EST 0.5 mg documented in this encounter Active and Recently Administered Medications Times are shown in EST. Scheduled Medication Order 09/26/2025 09/27/2025 09/28/2025 acetaminophen (TYLENOL) tablet 650 mg (COMPLETED) 650 mg, Oral, Once, 1 dose, On Sun09/28/25 at 0300 0256 (Given - Provid er: Darlin Mccormack RN) doxycycline monohydrate (MONODOX) capsule 100 mg 100 mg, Oral, 2 times daily, 10 doses, First dose on Sun09/28/25 at 0900, Last dose on Sun10/02/25 at 2100, Administer at least 2 hours before or 6 hours after oral calcium, magnesium, zinc, and other iron containing products. Give with food if GI upset occurs., Indication: Skin and Soft Tissue Infection, Routine 09 (Given - Provid er: Charline Soler RN) LORazepam (ATIVAN) tablet 0.5 mg (COMPLETED) 0.5 mg, Oral, Once, 1 dose, On Sun09/28/25 at 0330 0321 (Given - Provid er: Darlin Mccormack RN) documented in this encounter Additional Health Concerns Infection Onset Date Last Indicated Resolved Time Rule-Out Respiratory Virus 09/28/2025 09/28/2025 1 11/28/2024 3:39 AM EST documented as of this encounter Care Teams Accounting Clerk Relationship Specialty Start Date End Date Unknown, Provider, [address] [place] [address] PCP - General 09/28/25 documented as of this encounter
--- NOTE | 2025-10-02 | ECG_ITS ---
Test Reason : CP Blood Pressure : */* mmHG Vent. Rate : 83 BPM Atrial Rate : 83 BPM P-R Int : 122 ms QRS Dur : 92 ms QT Int : 384 ms P-R-T Axes : 43 66 44 degrees QTcB Int : 451 ms Normal sinus rhythm Normal ECG No previous ECGs available Referred By: Generic ED Physician Electronically Signed By: DEB YEUNG
--- NOTE | ~2025-10-02 | XR_ITS ---
CLINICAL HISTORY: cp 2 view chest x-ray Comparison: None provided Findings: No consolidation or effusion. Normal size heart. No acute fracture. IMPRESSION: 1. No acute findings. This document has been electronically signed by: Kavon Johnson MD on 10/02/2025 21:17:27
[2025-10-02 19:53] VITALS: BP 112/69; PULSE 85; RESP 16; TEMP 36.7; O2SAT 96; BMI 26.6
--- NOTE | 2025-10-02 19:57 | ED_ITS ---
[facility] - General Adult General Chief complaint: Chest Pain Stated complaint: SECTION 21 FROM [facility] Time Seen by Provider: 10/02/25 19:54 Source: patient Mode of arrival: ambulatory Limitations: no limitations History of Present Illness ED Provider: Dr. Rodriguez [facility] narrative: 35-year-old male from [facility] history of polysubstance abuse presented for chest pain. Patient describes a midsternal chest pain is intermittent nature. This has been going on for over a year now. Patient stated that he had recently relapsed. He used methamphetamine injected into his right foot. Related Data Allergies Allergy/AdvReac Type Severity Reaction Status Date / Time No Known Allergies Allergy Verified 10/02/25 19:53 Review of Systems 2 Review of Systems: Pertinent review of systems as mentioned in HPI. All other system otherwise negative. [facility] Past Medical History [facility] Narrative: Medical history as mentioned in [facility] Social History Social History Advance Directives: No Advance Directives Information Provided: No Physical Exam ED Exam Exam: General: Pleasant, no distress, interacting appropriately Head: Normacephalic, atraumatic ENT: oral mucosa moist, neck supple, no tracheal deviation Cardiovascular: regular rate, regular rhythm, no murmurs, rubbing, gallops Respiratory: CTAB, no wheeze, rales, rhonchi Extremities: No sign of erythema on the site of injection of his right foot. I do not think there is any signs of cellulitis. Neurological: Awake and alert, no facial droop noted Skin: Warm and dry Psychiatric: Appropriate mood and thoughts Vital Signs: Vital Signs - 24 hr 10/02/25 19:53 Temperature 98.1 F Pulse Rate 85 Respiratory Rate 16 Blood Pressure 112/69 Pulse Oximetry 96 Oxygen Delivery Method Room Air BMI result Body Mass Index 26.6 Medications Administered Discontinued Medications Generic Name Dose Route Start Last Admin Trade Name Freq PRN Reason Stop Dose Admin Acetaminophen 975 mg 10/02/25 20:30 10/02/25 21:09 Acetaminophen 325 Mg Tablet PO 10/02/25 20:31 975 mg ONCE ONE Administration Ketorolac Tromethamine 15 mg 10/02/25 20:30 10/02/25 21:09 Ketorolac Tromethamine 15 Mg/Ml Vial IVPUSH 10/02/25 20:31 15 mg ONCE ONE Administration Medical Decision Making Medical Decision Making [facility] Narrative: 35-year-old male presented hospital today for chest pain that is made intermittent nature for the past year. ACS workup will be performed for the patient. EKG did not show any signs of STEMI. Chest x-ray is negative. Troponin is negative. Patient does have slight leukocytosis. No tachycardia no signs of fever. I do not think this is sepsis. Low suspicion for infection. Patient will be discharged at this time. He will be discharged back to [facility]. IV Toradol was given for chest pain. Patient is requesting IV narcotics for his pain. However given his history is polysubstance abuse the risk outweighs the benefit. Differential Diagnosis Differential Diagnoses: The differential diagnosis associated with the presentation includes ACS, pneumonia, costochondritis, pleurisy Lab Data MDM Lab Attestation statement: I reviewed the patient's lab results. 10/02/25 20:13 10/02/25 20:13 Labs: Lab Results 10/02/25 Range/Units 20:13 WBC 10.9 H (4.8-10.8) X10*3/uL RBC 4.61 (4.60-5.80) X10*6/uL Hgb 13.5 L (14.0-18.0) g/dl Hct 40.4 L (42.0-52.0) % MCV 87.6 (80.0-98.0) fL MCH 29.3 (27.0-33.0) pg MCHC 33.4 (31.0-36.0) g/dl RDW 14.0 (11.0-16.0) % Plt Count 237 (160-400) X10*3/uL MPV 8.6 L (9.4-12.4) fL Immature Gran % (Auto) 1.3 H (0.0-0.4) % Neut % (Auto) 66.0 (45-73) % Lymph % (Auto) 24.9 (20-40) % Mclean % (Auto) 5.4 (2-11) % Eos % (Auto) 1.9 (0-4) % Baso % (Auto) 0.5 (0-2) % Lymph # (Auto) 2.7 (1.2-4.9) X10*3/uL Mclean # (Auto) 0.6 (0.1-1.2) X10*3/uL Eos # (Auto) 0.2 (0.0-0.4) X10*3/uL Baso # (Auto) 0.1 (0.0-0.2) X10*3/uL Abs Immat Gran (auto) 0.14 H (0.00-0.03) X10*3/uL Absolute Neuts (auto) 7.2 (2.0-8.3) x10*3/uL Absolute Nucleated RBC 0.000 (0.0-0.012) X10*3/uL Nucleated RBC % (auto) 0.0 (0.0-0.2) /100WBC Sodium 143 (135-145) mmol/L Potassium 4.0 (3.3-5.1) mmol/L Chloride 109 H (96-108) mmol/L Carbon Dioxide 26 (22-29) mmol/L Anion Gap 12 (12-20) BUN 24 H (9-16) mg/dL Creatinine 0.95 (0.5-1.4) mg/dL Estim Creat Clear Calc 103.0 Estimated GFR > 60 Random Glucose 102 (60-115) mg/dL Calcium 9.1 (8.4-10.2) mg/dL Magnesium 2.0 (1.6-2.6) mg/dL Total Bilirubin 0.1 (0.0-1.0) mg/dL AST 22 (5-37) U/L ALT 21 (0-40) U/L Alkaline Phosphatase 128 H (39-117) U/L Troponin I High Sens < 2.7 (<3.5-35.0) ng/L NT-Pro-B Natriuret Pep < 15.8 (<300) pg/mL Total Protein 6.6 (6.5-8.0) g/dL Albumin 4.1 (3.5-5.0) g/dL Independent Interpretation I performed an independent interpretation of an: EKG and Plain X-Ray Radiology Impression Discussion of test interpretation with radiology: I have reviewed the radiologist's reading. Social Determinants Polysubstance abuse Discharge Plan Discharge Clinical Impression: Atypical chest pain Patient Disposition: Xfer Other Transfer Details: Back to [facility] on Section Instructions: Noncardiac Chest Pain (ED) Additional Instructions: Chest X ray looks well, No elevation of your heart enzymes. I do not think your chest pain is cardiac in nature. Likely chest wall pain. Print Language: Mongolian
[2025-10-02 20:17] LABS: MANUAL DIFF FLAG NO
[2025-10-02 20:18] LABS: Hematocrit 40.4 % (42.0-52.0); Hemoglobin 13.5 g/dl (14.0-18.0); Imm Gran Abs Auto 0.14 X10*3/uL (0.00-0.03); Imm Gran Pct Auto 1.3 % (0.0-0.4); Lymphocytes Absolute Auto 2.7 X10*3/uL (1.2-4.9); Mean Corpuscular HGB Conc 33.4 g/dl (31.0-36.0); Mean Corpuscular Hemoglobin 29.3 pg (27.0-33.0); Mean Corpuscular Volume 87.6 fL (80.0-98.0); NRBC Abs Auto 0.000 X10*3/uL (0.0-0.012); NRBC Pct Auto 0.0 /100WBC (0.0-0.2); Platelet Count 237 X10*3/uL (160-400); Red Blood Count 4.61 X10*6/uL (4.60-5.80); White Blood Count 10.9 X10*3/uL (4.8-10.8)
[2025-10-02 20:33] LABS: Alanine Aminotransferase 21 U/L (0-40); Albumin Level 4.1 g/dL (3.5-5.0); Alkaline Phosphatase 128 U/L (39-117); Anion Gap 12 (12-20); Aspartate Amino Transferase 22 U/L (5-37); Blood Urea Nitrogen 24 mg/dL (9-16); Calcium 9.1 mg/dL (8.4-10.2); Carbon Dioxide 26 mmol/L (22-29); Chloride 109 mmol/L (96-108); Creatinine Clr Calc Pharmacy 103.0; Estimated Glomerular Filt Rate > 60; Magnesium 2.0 mg/dL (1.6-2.6); Potassium 4.0 mmol/L (3.3-5.1); Sodium 143 mmol/L (135-145); Total Protein 6.6 g/dL (6.5-8.0)
[2025-10-02 20:53] LABS: NT Pro B Type Natriuretic Pept < 15.8 pg/mL (<300); Troponin-I High Sensitivity < 2.7 ng/L (<3.5-35.0)
--- OUTSIDE RECORDS SUMMARY | 2025-10-02 20:56 | XMS_ITS | Clinical Summary ---
Author Organization [facility] Address [address] [place] [address] Care Team Providers Care Programmer Developer Name Role Phone Unknown, Provider Primary Care Provider Unava ilable Allergies No known active allergies Medications No known medications Encounters Date Type Department Care Team Description 09/28/2025 1:27 AM EST - 09/28/2025 12:35 PM EST Hospital Encounter [facility] Emergency Department [address], [place] [id number] Bettina Zavala MD Fischer, Christopher, MD Suicidal ideation (Primary Dx); Open wound of right heel, initial encounter; IVDU (intravenous drug user); Chest pain, unspecified type; Schizoaffective disorder, unspecified type ([facility]) Discharge Disposition: Psychiatric Hospital 09/28/2025 Travel from Last 3 Months Social History Tobacco Use Types Packs/Day Years [...] any time in the past 12 m [facility], were you homeless or living in a fci (including now)? Yes 09/28/2025 [facility] Utilities Answer Date Recorded In the past [...] 2:35 AM EST Sexual Orientation Straight 09/28/2025 2 :35 AM EST Last Filed Vital Signs Vital Sign Reading Time Taken Comments Blood Pressure 104/73 09/28/2025 7:51 AM EST Pulse 71 09/28/2025 7:51 AM EST Temperature 36.5 C (97.7 F) 09/28/2025 7:51 AM EST Respiratory Rate 16 09/28/2025 7:51 AM EST Oxygen Saturation 99% 09/28/2025 7:51 AM EST Inhaled Oxygen Concentration - - Weight - - Height - - Body Mass Index - - Plan of Treatment Health Maintenance Due Date Last Done Comments Depression Screening 2000 Hepatitis C Screening 2006 Medicare Initial AWV [id number] 08/05/2020 COVID-19 Vaccine (1 - 2024-2 6 season) 2025 Blood Pressure 09/28/2029 09/28/2025 DTaP,Tdap,and Td Vaccines (2 - Td or Tdap) 01/23/2035 01/23/2025 Influenza Vaccine Completed 09/03/2025 Meningococcal B Vaccines Aged Out No longer eligible based on patient's age to complete this topic Meningococcal Vaccines Aged Out No lo nger eligible based on patient's age to complete this topic Pneumococcal Vaccine Aged Out No long er eligible based on patient's age to complete this topic Procedures Procedure Name Priority Date/Time Associated Diagnosis Comments XR PORTABLE CHEST 1 VW STAT 09/28/2025 3:04 AM EST SARS COV2/INFLUENZA A/B AND RSV STAT 09/28/2025 2:58 AM EST XR FOOT 3+ VW RIGHT STAT 09/28/2025 2 :57 AM EST XR ANKLE 3+ VW RIGHT STAT 09/28/2025 2:57 AM EST ECG 12-LEAD STAT 09/28/2025 2:38 AM EST CBC AND DIFFERENTIAL STAT 09/28/2025 2:26 AM EST TOXICOLOGY SCREEN, BLOOD STAT 09/28/2025 2:26 AM EST C-REACTIVE PROTEIN STAT 09/28/2025 2: 26 AM EST HS TROPONIN T (REFLEX 1HR, 3HR) Routine 09/28/2025 2:26 AM EST MAGNESIUM Routine 09/28/2025 2:26 AM EST BLOOD BANK HOLD TUBE STAT 09/28/2025 2:26 AM EST CBC AND DIFFERENTIAL STAT 09/28/2025 2:26 AM EST BASIC METABOLIC PANEL STAT 09/28/2025 2:26 AM EST from Last 3 Months Results * XR Chest 1 Vw Portable [...] the interpretation. Reported By: Luke Crowley M.D. ([id number]) Signed By: Angel Luis Pina M.D. ([id number]) Report Date/Time: 09/28/2025 6:50 AM Report ID: [id number] Narrative 09/28/2025 6:50 AM EST RESPONSIBLE TELEGRAPHIC TYPEWRITER MECHANIC: Angel Luis Pina M.D. EXAMINATION: XR CHEST [...] Note Lacho Pina MD - 09/28/2025 RESPONSIBLE TELEGRAPHIC TYPEWRITER MECHANIC: Angel Luis iPna M.D. EXAMINATION: XR CHEST 1 VW PORTABLE [...] the interpretation. Reported By: Luke Crowley M.D. ([id number]) Signed By: Angel Luis Pina M.D. ([id number]) Report Date/Time: 09/28/2025 6:50 AM Report ID: [id number] Bettina Zavala MD IM DIAGNOSTIC IMAGING OR DERABLES Final Result * Covid/Flu/RSV (Rapid) (09/28/2025 2:58 AM EST) Coronavirus SARS-CoV-2 Not Detected Not Detected 09/28/2025 3:39 AM [facility] Influenza A Not Detected Not Detected by PCR 09/28/2025 3:39 AM EST [facility] Influenza B Not Detected Not Detected by PCR 09/28/2025 3:39 AM [facility] RSV by PCR Not Detected Not Detected by PCR 09/28/2025 3:39 AM EST [facility] Respiratory SWAB OF INTERNAL NOSE / Unknown Collection / Unknown 09/28/2025 2:58 AM EST 09/28/2025 3:00 AM EST [facility] - 09/28/2025 3:39 AM EST The [employer] Xpert SARS-CoV-2/ Flu/ RSV assay is intended [...] Authorization (EUA) for use by clinical laboratories. Bettina Zavala MD BODY FLUIDS AND STOOLS OR DERABLES Final Result [facility] [address] [place] [address], [place] * XR Foot 3+ Vw Right [...] the interpretation. Reported By: Luke Crowley M.D. ([id number]) Signed By: Angel Luis Pina M.D. ([id number]) Report Date/Time: 09/28/2025 6:51 AM Report ID: [id number] Narrative 09/28/2025 6:51 AM EST RESPONSIBLE TELEGRAPHIC TYPEWRITER MECHANIC: Angel Luis Pina M.D. EXAMINATION: XR ANKLE [...] Note Lacho Pina MD - 09/28/2025 RESPONSIBLE TELEGRAPHIC TYPEWRITER MECHANIC: Angel Luis Pina M.D. EXAMINATION: XR ANKLE [...] the interpretation. Reported By: Luke Crowley M.D. ([id number]) Signed By: Angel Luis Pina M.D. ([id number]) Report Date/Time: 09/28/2025 6:51 AM Report ID: [id number] us Bettina Zavala MD IMG DIAGNOSTIC IMAGING [...] agree with the interpretation. Reported By: Luke Crolwey M.D. ([id number]) Signed By: Angel Luis Pina M.D. ([id number]) Report Date/Time: 09/28/2025 6:51 AM Report ID: [id number] Narrative 09/28/2025 6:51 AM EST RESPONSIBLE TELEGRAPHIC TYPEWRITER MECHANIC: Angel Luis Pina M.D. EXAMINATION: XR ANKLE [...] Note Lacho Pina MD - 09/28/2025 RESPONSIBLE TELEGRAPHIC TYPEWRITER MECHANIC: Angel Luis Pina M.D. EXAMINATION: XR ANKLE [...] the interpretation. Reported By: Luke Crowley M.D. ([id number]) Signed By: Angel Luis Pina M.D. ([id number]) Report Date/Time: 09/28/2025 6:51 AM Report ID: [id number] Bettina Zavala MD IMG DIAGNOSTIC IMAGING OR DERABLES Final Result * ECG 12 lead, to be obtained, chest pain (09/28/2025 2:38 AM EST) Ventricular Heart Rate 84 BPM EKG BUR MUSE Atrial Heart Rate 84 BPM EKG BUR MUSE MN Interval 132 ms EKG BUR MUSE QRSD Interval 92 ms EKG BUR MUSE QT Interval 386 ms EKG BUR MUSE QTC Interval 456 ms EKG BUR MUSE P [place] 56 degrees EKG BUR MUSE R [place] 77 degrees EKG BUR MUSE T Wave [place] 42 degrees EKG BUR MUSE 09/28/2025 2:38 AM EST 09/29/2025 5:01 PM EST Narrative EKG BUR MUSE - 09/29/2025 5:01 PM EST Normal sinus rhythm Normal ECG No previous ECGs available Confirmed by Ezequiel Huston ([id number]) on 09/29/2025 5:01:28 PM Procedure Note O'Ama, Ezequiel D, MD - 09/29/2025 Normal sinus rhythm Normal ECG No previous ECGs available Confirmed by Ezequiel Huston ([id number]) on 09/29/2025 5:01:28 PM Bettina Zavala MD ECG ORDERABLES Final Res ult Performing Organization Address City/[facility]/ZIP Co de Phone Number EKG BUR [address] [address] * Hs-Troponin (with reflex 0, 1, +/-3 hours) (09/28/2025 2:26 AM EST) Pathologist [facility] Troponin T HS <6 <=22 ng/L 09/28/2025 5:52 AM EST [facility] Blood PERIPHERAL BLOOD SPECIMEN / Unknown Venipuncture / Unknown 09/28/2025 2:26 AM EST 09/28/2025 3:54 AM EST Bettina Zavala MD LAB BLOOD ORDERABLES Leyla l Result Performing Organization Address City/[facility]/ZIP Co de Phone Number [facility] [address] [place] [address], * CBC and Differential (09/28/2025 2:26 AM EST) Pathologist [facility] WBC 10.99 4.00 - 11.00 K/uL 09/28/2025 2:30 AM EST [facility] RBC 4.73 4.30 - 5.80 M/uL 09/28/2025 2:30 AM EST [facility] Hemoglobin 13.9 13.5 - 17.5 g/dL 09/28/2025 2:30 AM EST [facility] Hematocrit 42.5 41.0 - 53.0 % 09/28/2025 2:30 AM EST [facility] MCV 90 80 - 94 fL 09/28/2025 2:30 AM EST [facility] MCH 29.4 26.0 - 33.0 pg 09/28/2025 2:30 AM EST [facility] MCHC 32.7 31.0 - 37.0 g/dL 09/28/2025 2:30 AM [facility] RDW 13.8 11.5 - 14.5 % 09/28/2025 2:30 AM [facility] Platelet Count 239 150 - 400 K/uL 09/28/2025 2:30 AM [facility] Nucleated RBC 0 <=0 #/100 WBC 09/28/2025 2:30 AM [facility] Neutrophil 71.0 30.0 - 85.0 % 09/28/2025 2:30 AM [facility] Lymphocyte 18.1 15.0 - 50.0 % 09/28/2025 2:30 AM [facility] Monocyte 7.6 2.0 - 12.0 % 09/28/2025 2:30 AM [facility] Eosinophil 2.5 0.0 - 5.0 % 09/28/2025 2:30 AM [facility] Basophil 0.3 0.0 - 2.0 % 09/28/2025 2:30 AM [facility] Immature Granulocyte ([place], Myelo, Promyelocyte) 0.5 0.0 - 1.0 % 09/28/2025 2:30 AM [facility] Absolute Neutrophil Count 7.81 1.20 - 9.30 K/uL 09/28/2025 2:30 AM [facility] Absolute Lymphocyte Count 1.99 0.60 - 5.50 K/uL 09/28/2025 2:30 AM [facility] Absolute Monocyte Count 0.83 0.08 - 1.30 K/uL 09/28/2025 2:30 AM [facility] Absolute Eosinophil Count 0.28 0.00 - 0.68 K/uL 09/28/2025 2:30 AM [facility] Absolute Basophil Count 0.03 0.00 - 0.20 K/uL 09/28/2025 2:30 AM [facility] Absolute Immature Granulocyte ([place], Myelo, Promyelocyte) 0.05 0.00 - 0.10 K/uL 09/28/2025 2:30 AM [facility] Blood PERIPHERAL BLOOD SPECIMEN / Unknown Venipuncture / Unknown 09/28/2025 2:26 AM EST 09/28/2025 2:26 AM EST us Bettina Zavala MD LAB BLOOD ORDERABLES Leyla l Result [facility] [address] [place] [address], [place] * Toxicology Screen, Plasma (09/28/2025 2:26 AM EST) Pathologist [facility] Acetaminophen Result,Blood <5 <=30 ug/mL 09/28/2025 5:46 AM EST [facility] Alcohol <10 <=10 mg/dL 09/28/2025 5:46 AM EST [facility] Salicylate Level, Blood <1 <=10 mg/dL 09/28/2025 5:46 AM EST [facility] Blood PERIPHERAL BLOOD SPECIMEN / Unknown Venipuncture / Unknown 09/28/2025 2:26 AM EST 09/28/2025 3:54 AM EST us Bettina Zavala MD LAB BLOOD ORDERABLES Leyla l Result Performing Organization Address City/[facility]/ZIP Co de Phone Number [facility] [address] [place] [address], [place] * Blood Bank Hold Tube (09/28/2025 2:26 AM EST) [facility] Top Tube Received 09/28/2025 2:58 AM EST [facility] Blood Venipuncture / Unknown 09/28/2025 2:26 AM EST 09/28/2025 2:58 AM EST us Bettina Zavala MD BLOOD BANK TEST ORDERABLE S Final Result [facility] [address] [place] [address], [place] * (ABNORMAL) C-Reactive Protein (09/28/2025 2:26 AM EST) Pathologist [facility] C-Reactive Protein (CRP) 9.1(H) <5.0 mg/L 09/28/2025 5:46 AM EST [facility] Blood PERIPHERAL BLOOD SPECIMEN / Unknown Venipuncture / Unknown 09/28/2025 2:26 AM EST 09/28/2025 3:54 AM EST Bettina Zavala MD LAB BLOOD ORDERABLES Leyla l Result Performing Organization Address City/[facility]/ZIP Co de Phone Number [facility] [address] [place] [address], * Magnesium (09/28/2025 2:26 AM EST) Pathologist [facility] Magnesium, Blood 1.9 1.6 - 2.6 mg/dL 09/28/2025 5:46 AM EST [facility] Blood PERIPHERAL BLOOD SPECIMEN / Unknown Venipuncture / Unknown 09/28/2025 2:26 AM EST 09/28/2025 3:54 AM EST Bettina Zavala MD LAB BLOOD ORDERABLES Leyla l Result Performing Organization Address City/[facility]/ZIP Co de Phone Number [facility] [address] [place] [address], * (ABNORMAL) Basic Metabolic Panel (09/28/2025 2:26 AM EST) Pathologist [facility] Sodium 142 136 - 145 mmol/L 09/28/2025 2:57 AM EST [facility] Potassium 3.6 3.5 - 5.1 mmol/L 09/28/2025 2:57 AM EST [facility] Chloride 106 98 - 107 mmol/L 09/28/2025 2:57 AM EST [facility] Total CO2/Bicarbonat e 26 22 - 29 mmol/L 09/28/2025 2:57 AM EST [facility] Anion Gap 10 2 - 15 mmol/L 09/28/2025 2:57 AM [facility] BUN 25(H) 6 - 20 mg/dL 09/28/2025 2:57 AM EST [facility] Creatinine, Blood 0.90 0.70 - 1.20 mg/dL 09/28/2025 2:57 AM [facility] Glucose, Blood 116(H) 74 - 109 mg/dL 09/28/2025 2:57 AM EST [facility] Calcium 9.1 8.6 - 10.0 mg/dL 09/28/2025 2:57 AM EST [facility] Estimated GFR(CKD-EPI) 113 >=60 mL/min/BSA 09/28/2025 2:57 AM EST [facility] Blood PERIPHERAL BLOOD SPECIMEN / Unknown Venipuncture / Unknown 09/28/2025 2:26 AM EST 09/28/2025 2:26 AM EST us Bettina Zavala MD LAB BLOOD ORDERABLES Leyla mccarty Result [facility] [address] [place] [address], from Last 3 Months Insurance [facility] MEDICARE [facility]ICARE [facility] [place] [address] [place] [address] MEDICARE Care Teams Programmer Developer Relationship Specialty Start Date End Date Unknown, Provider, [address] [place] [id number] PCP - General 09/28/25
--- OUTSIDE RECORDS SUMMARY | 2025-10-02 20:56 | XMS_ITS ---
Author Name [facility] Organization Unknown Results Test Name/Text Value Interpretation Date Range Source AST SerPl w P-5'-P-cCnc 48.0 U/L Above high normal 2025 10 - 35 [facility] ALT SerPl w/o P-5'-P-cCnc 29.0 U/L 2025 9 - 59 [facility] HCO3 SerPl-sCnc 24.0 mmol/L 2025 20 - 30 [facility] Potassium SerPl-sCnc 4.2 mmol/L 2025 3.3 - 5 .3 [facility] Sodium SerPl-sCnc 145.0 mmol/L Above high normal 2025 136 - 144 [facility] Glucose SerPl-mCnc 87.0 mg/dL 2025 70 - 100 [facility] Calcium SerPl-mCnc 9.4 mg/dL 2025 8.8 - 10.2 [facility] BUN/Creat SerPl 14.4 2025 8 - 23 [facility] BUN SerPl-mCnc 14.0 mg/dL 2025 6 - 20 [facility] Creat SerPl-mCnc 0.97 mg/dL 2025 0.4 - 1.3 [facility] Anion Gap SerPl Calculated.3Ions-sCn c 13.0 2025 7 - 17 [facility] Chloride SerPl-sCnc 108.0 mmol/L Above high normal 98 - 107 [facility] BKR CREATININE DELTA 0.11 2025 - [facility] GFR SerPlBld Creatinine-bsd fmla CKD-EPI >60.0 mL/min/1.73m2 2025 - [facility] Monocytes NFr Bld Auto 6.1 % 2025 4 - 12 [facility] Lymphocytes NFr Bld Auto 38.4 % 2025 17 - 50 [facility] WBC # Bld Auto 8.0 x1000/uL 2025 4 - 11 [facility] Basophils NFr Bld Auto 0.5 % 2025 0 - 1.4 [facility] Neutrophils # Bld Auto 4.04 x 1000/uL 2025 2 - 7.6 [facility] Imm Granulocytes NFr Bld Auto 0.2 % 2025 0 - 1 [facility] nRBC Bld Auto-Rto 0.0 % 2025 0 - 1 [facility] PMV Bld Auto 8.9 fL 2025 8 - 12 [facility] T RBC Auto 89.7 fL 2025 80 - 100 [facility] Basophils # Bld Auto 0.04 x 1000/uL 2025 0 - 1 [facility] Eosinophil # Bld Auto 0.36 x 1000/uL 2025 0 - 1 [facility] nRBC # Bld Auto 0.0 x 1000/uL 2025 0 - 1 [facility] Monocytes # Bld Auto 0.49 x 1000/uL 2025 0 - 1 [facility] MCH RBC Qn Auto 28.8 pg 2025 27 - 33 [facility] RBC # Bld Auto 5.32 M/uL 2025 4 - 6 [facility] Neutrophils NFr Bld Auto 50.3 % 2025 39 - 72 [facility] Hct VFr Bld Auto 47.7 % 2025 38.5 - 50 [facility] Platelet # Bld Auto 216.0 x1000/uL 2025 150 - 420 [facility] Hgb Bld-mCnc 15.3 g/dL 2025 13.2 - 17.1 [facility] Imm Granulocytes # Bld Auto 0.02 x 1000/uL 2025 0 - 0.3 [facility] MCHC RBC Auto-EntMCnc 32.1 g/dL 2025 31 - 36 [facility] RDW RBC Auto 14.4 % 2025 11 - 15 [facility] T Lymphocytes # Bld Auto 3.09 x 1000/uL 2025 0.6 - 3.7 [facility] Eosinophil NFr Bld Auto 4.5 % 2025 0 - 5 [facility] Neutrophils # Bld Auto 5.92 x 1000/uL 09/21/2025 2 - 7.6 [facility] RBC Auto 88.5 fL 09/21/2025 80 - 100 [facility] RBC # Bld Auto 5.39 M/uL 09/21/2025 4 - 6 [facility] WBC # Bld Auto 9.0 x1000/uL 09/21/2025 4 - 11 [facility] PMV Bld Auto 8.8 fL 09/21/2025 8 - 12 [facility] T Platelet # Bld Auto 203.0 x1000/uL 09/21/2025 150 - 420 [facility] RDW RBC Auto 14.1 % 09/21/2025 11 - 15 [facility] T Hgb Bld-mCnc 15.4 g/dL 09/21/2025 13.2 - 17.1 [facility] MCH RBC Qn Auto 28.6 pg 09/21/2025 27 - 33 [facility] MCHC RBC Auto-EntMCnc 32.3 g/dL 09/21/2025 31 - 36 [facility] Hct VFr Bld Auto 47.7 % 09/21/2025 38.5 - 50 [facility] Calcium SerPl-mCnc 9.1 mg/dL 09/21/2025 8.8 - 10.2 [facility] Potassium SerPl-sCnc 3.8 mmol/L 09/21/2025 3.3 - 5 .3 [facility] GFR SerPlBld Creatinine-bsd fmla CKD-EPI >60.0 mL/min/1.73m2 09/21/2025 - [facility] Glucose SerPl-mCnc 93.0 mg/dL 09/21/2025 70 - 100 [facility] Anion Gap SerPl Calculated.3Ions-sCn c 10.0 09/21/2025 7 - 17 [facility] Creat SerPl-mCnc 0.86 mg/dL 09/21/2025 0.4 - 1.3 [facility] HCO3 SerPl-sCnc 24.0 mmol/L 09/21/2025 20 - 30 [facility] BKR CREATININE DELTA 0.02 09/21/2025 - [facility] Sodium SerPl-sCnc 142.0 mmol/L 09/21/2025 136 - 14 4 [facility] Chloride SerPl-sCnc 108.0 mmol/L Above high normal 98 - 107 [facility] BUN SerPl-mCnc 7.0 mg/dL 09/21/2025 6 - 20 [facility] BUN/Creat SerPl 8.1 09/21/2025 8 - 23 [facility] HbA1c MFr Bld 5.5 % 09/19/2025 - [facility] BKR ESTIMATED AVERAGE GLUCOSE 111.0 mg/dL 09/19/2025 [facility] RBC # Bld Auto 4.91 M/uL 09/19/2025 4 - 6 [facility] Hgb Bld-mCnc 13.9 g/dL 09/19/2025 13.2 - 17.1 [facility] WBC # Bld Auto 7.2 x1000/uL 09/19/2025 4 - 11 [facility] Basophils # Bld Auto 0.02 x 1000/uL 09/19/2025 0 - 1 [facility] MCH RBC Qn Auto 28.3 pg 09/19/2025 27 - 33 [facility] Lymphocytes # Bld Auto 1.74 x 1000/uL 09/19/2025 0.6 - 3.7 [facility] nRBC Bld Auto-Rto 0.0 % 09/19/2025 0 - 1 [facility] Neutrophils # Bld Auto 4.63 x 1000/uL 09/19/2025 2 - 7.6 [facility] Neutrophils NFr Bld Auto 64.5 % 09/19/2025 39 - 72 [facility] Imm Granulocytes NFr Bld Auto 0.4 % 09/19/2025 0 - 1 [facility] Eosinophil # Bld Auto 0.33 x 1000/uL 09/19/2025 0 - 1 [facility] Hct VFr Bld Auto 43.6 % 09/19/2025 38.5 - 50 [facility] Imm Granulocytes # Bld Auto 0.03 x 1000/uL 09/19/2025 0 - 0.3 [facility] nRBC # Bld Auto 0.0 x 1000/uL 09/19/2025 0 - 1 [facility] Basophils NFr Bld Auto 0.3 % 09/19/2025 0 - 1.4 [facility] RDW RBC Auto 13.7 % 09/19/2025 11 - 15 [facility] T Monocytes NFr Bld Auto 6.0 % 09/19/2025 4 - 12 [facility] Lymphocytes NFr Bld Auto 24.2 % 09/19/2025 17 - 50 [facility] Eosinophil NFr Bld Auto 4.6 % 09/19/2025 0 - 5 [facility] Monocytes # Bld Auto 0.43 x 1000/uL 09/19/2025 0 - 1 [facility] Platelet # Bld Auto 200.0 x1000/uL 09/19/2025 150 - 420 [facility] MCHC RBC Auto-EntMCnc 31.9 g/dL 09/19/2025 31 - 36 [facility] RBC Auto 88.8 fL 09/19/2025 80 - 100 [facility] PMV Bld Auto 8.6 fL 09/19/2025 8 - 12 [facility] T Phosphate SerPl-mCnc 2.6 mg/dL 09/19/2025 2.2 - 4. 5 [facility] Creat SerPl-mCnc 0.84 mg/dL 09/19/2025 0.4 - 1.3 [facility] Potassium SerPl-sCnc 3.1 mmol/L Below low normal 09/19/2025 3.3 - 5.3 [facility] BKR CREATININE DELTA -0.22 09/19/2025 - [facility] Anion Gap SerPl Calculated.3Ions-sCn c 11.0 09/19/2025 7 - 17 [facility] BUN/Creat SerPl 17.9 09/19/2025 8 - 23 [facility] Sodium SerPl-sCnc 137.0 mmol/L 09/19/2025 136 - 14 4 [facility] GFR SerPlBld Creatinine-bsd fmla CKD-EPI >60.0 mL/min/1.73m2 09/19/2025 - [facility] Chloride SerPl-sCnc 105.0 mmol/L 09/19/2025 98 - 1 07 [facility] Glucose SerPl-mCnc 87.0 mg/dL 09/19/2025 70 - 100 [facility] HCO3 SerPl-sCnc 21.0 mmol/L 09/19/2025 20 - 30 [facility] Calcium SerPl-mCnc 8.1 mg/dL Below low normal 09/19/2025 8.8 - 10.2 [facility] BUN SerPl-mCnc 15.0 mg/dL 09/19/2025 6 - 20 [facility] Magnesium SerPl-mCnc 1.9 mg/dL 09/19/2025 1.7 - 2. 4 [facility] BKR METHANOL2 Not Detected 09/19/2025 - [facility] Ethanol SerPl-mCnc Not Detected 09/19/2025 - [facility] BKR ACETONE BLOOD2 Not Detected 09/19/2025 - [facility] BKR ISOPROPANOL BLOOD2 Not Detected 09/19/2025 - [facility] ESR RBC Qn 5.0 mm/hr 09/19/2025 0 - 20 [facility] BUN/Creat SerPl 21.7 09/18/2025 8 - 23 [facility] Bilirub SerPl-mCnc 0.7 mg/dL 09/18/2025 - [facility] AST/ALT SerPl-cRto 2.4 09/18/2025 - [facility] Calcium SerPl-mCnc 8.9 mg/dL 09/18/2025 8.8 - 10.2 [facility] ALT SerPl w/o P-5'-P-cCnc 29.0 U/L 09/18/2025 9 - 59 [facility] Sodium SerPl-sCnc 141.0 mmol/L 09/18/2025 136 - 14 4 [facility] Albumin SerPl BCG-mCnc 4.3 g/dL 09/18/2025 3.6 - 5.1 [facility] Albumin/Glob SerPl 1.7 09/18/2025 1 - 2.2 [facility] ALP SerPl-cCnc 106.0 U/L 09/18/2025 9 - 122 [facility] Anion Gap SerPl Calculated.3Ions-sCn c 11.0 09/18/2025 7 - 17 [facility] Potassium SerPl-sCnc 3.4 mmol/L 09/18/2025 3.3 - 5 .3 [facility] Globulin Plas-mCnc 2.5 g/dL 09/18/2025 2 - 3.9 [facility] AST SerPl w P-5'-P-cCnc 71.0 U/L Above high normal 09/18/2025 10 - 35 [facility] BUN SerPl-mCnc 23.0 mg/dL Above high normal 09/18/2025 6 - 2 0 [facility] Chloride SerPl-sCnc 103.0 mmol/L 09/18/2025 98 - 1 07 [facility] Creat SerPl-mCnc 1.06 mg/dL 09/18/2025 0.4 - 1.3 [facility] BKR CREATININE DELTA 09/18/2025 [facility] GFR SerPlBld Creatinine-bsd fmla CKD-EPI >60.0 mL/min/1.73m2 09/18/2025 - [facility] Prot SerPl-mCnc 6.8 g/dL 09/18/2025 5.9 - 8.3 [facility] HCO3 SerPl-sCnc 27.0 mmol/L 09/18/2025 20 - 30 [facility] Glucose SerPl-mCnc 119.0 mg/dL Above high normal 09/18/2025 70 - 100 [facility] CRP SerPl HS-mCnc 3.5 mg/L Above high normal 09/18/2025 - [facility] Ethanol SerPl-mCnc <10.0 mg/dL 09/18/2025 - 10 [facility] Salicylates SerPl-mCnc <0.3 mg/dL Below low normal 09/18/2025 - [facility] APAP SerPl-mCnc <5.0 ug/mL Below low normal 09/18/2025 10 - 30 [facility] Lymphocytes NFr Bld Auto 27.6 % 09/18/2025 17 - 50 [facility] Imm Granulocytes # Bld Auto 0.02 x 1000/uL 09/18/2025 0 - 0.3 [facility] Monocytes NFr Bld Auto 5.3 % 09/18/2025 4 - 12 [facility] Hgb Bld-mCnc 13.7 g/dL 09/18/2025 13.2 - 17.1 [facility] RDW RBC Auto 13.7 % 09/18/2025 11 - 15 [facility] T RBC # Bld Auto 4.69 M/uL 09/18/2025 4 - 6 [facility] Hct VFr Bld Auto 41.4 % 09/18/2025 38.5 - 50 [facility] Platelet # Bld Auto 229.0 x1000/uL 09/18/2025 150 - 420 [facility] Neutrophils # Bld Auto 5.11 x 1000/uL 09/18/2025 2 - 7.6 [facility] Imm Granulocytes NFr Bld Auto 0.2 % 09/18/2025 0 - 1 [facility] Lymphocytes # Bld Auto 2.26 x 1000/uL 09/18/2025 0.6 - 3.7 [facility] MCHC RBC Auto-EntMCnc 33.1 g/dL 09/18/2025 31 - 36 [facility] nRBC Bld Auto-Rto 0.0 % 09/18/2025 0 - 1 [facility] MCH RBC Qn Auto 29.2 pg 09/18/2025 27 - 33 [facility] Eosinophil NFr Bld Auto 3.9 % 09/18/2025 0 - 5 [facility] Eosinophil # Bld Auto 0.32 x 1000/uL 09/18/2025 0 - 1 [facility] RBC Auto 88.3 fL 09/18/2025 80 - 100 [facility] WBC # Bld Auto 8.2 x1000/uL 09/18/2025 4 - 11 [facility] PMV Bld Auto 8.7 fL 09/18/2025 8 - 12 [facility] T Basophils NFr Bld Auto 0.5 % 09/18/2025 0 - 1.4 [facility] Neutrophils NFr Bld Auto 62.5 % 09/18/2025 39 - 72 [facility] Basophils # Bld Auto 0.04 x 1000/uL 09/18/2025 0 - 1 [facility] nRBC # Bld Auto 0.0 x 1000/uL 09/18/2025 0 - 1 [facility] Monocytes # Bld Auto 0.43 x 1000/uL 09/18/2025 0 - 1 [facility] SARS-CoV-2 RNA Spec Ql URBAN+probe Not detected (qualifier value) Normal 11/05/2024 [facility] RSV RNA PCR Not Detected Not Detected Normal 11/05/2024 [facility] Influenza B RNA PCR Not Detected Not Detected Normal 11/05/2024 [facility] Influenza A RNA PCR Not Detected Not Detected Normal 11/05/2024 [facility] COVID-19/Coronavirus RNA PCR Not Detected Not Detected Normal 11/05/2024 [facility] GFR [place] 114.0 mL/min/1.73 m2 Normal 11/05/2024 - [facility] Lipase Lvl 36.0 unit/L Normal 11/05/2024 12 - 53 [facility] Total Protein 6.2 gm/dL Normal 11/05/2024 5.7 - 8.2 [facility] Potassium Lvl 3.3 mmol/L Below low normal 11/05/2024 3.4 - 4 .5 [facility] Albumin Lvl 3.9 gm/dL Normal 11/05/2024 3.2 - 4.8 [facility] ALT 26.0 unit/L Normal 11/05/2024 10 - 49 [facility] Sodium Lvl 140.0 mmol/L Normal 11/05/2024 136 - 145 [facility] Chloride 108.0 mmol/L Above high normal 11/05/2024 98 - 107 [facility] Glucose Lvl Random 113.0 mg/dL Normal 11/05/2024 65 - 140 [facility] Bili Total 0.4 mg/dL Normal 11/05/2024 0.3 - 1.2 [facility] Calcium Lvl 8.9 mg/dL Normal 11/05/2024 8.7 - 10.4 [facility] Creatinine 0.88 mg/dL Normal 11/05/2024 0.6 - 1.1 [facility] Globulin 2.3 gm/dL Normal 11/05/2024 1.3 - 4.7 [facility] AGAP 5.0 mmol/L Normal 11/05/2024 5 - 15 [facility] BUN 9.0 mg/dL Normal 11/05/2024 9 - 23 [facility] AST 31.0 unit/L Normal 11/05/2024 0 - 33 [facility] Alk Phos 119.0 unit/L Above high normal 11/05/2024 46 - 116 [facility] A/G Ratio 1.7 Normal 11/05/2024 1 - 3.8 [facility] CO2 27.0 mmol/L Normal 11/05/2024 21 - 32 [facility] MCHC 34.3 gm/dL Normal 11/05/2024 31 - 36 [facility] Eos % 3.8 % Normal 11/05/2024 0 - 6 [facility] RDW 13.6 % Normal 11/05/2024 11.5 - 15.5 [facility] RBC 4.64 million/uL Normal 11/05/2024 4.2 - 5.5 [facility] Monocyte Abs 1.0 k/uL Normal 11/05/2024 0.1 - 1.3 [facility] Eosinophil Abs 0.4 k/uL Normal 11/05/2024 0 - 0.7 [facility] Hgb 14.4 gm/dL Normal 11/05/2024 12.5 - 16.5 [facility] NRBC auto 0.0 /100 wbcs Normal 11/05/2024 0 - 2 [facility] Basophil % 0.4 % Normal 11/05/2024 0 - 2 [facility] MCH 31.0 pg Normal 11/05/2024 27 - 31 [facility] Basophil Abs 0.0 k/uL Normal 11/05/2024 0 - 0.2 [facility] Lymph Absolute 2.1 k/uL Normal 11/05/2024 0.6 - 4.9 [facility] [place] % 9.9 % Normal 11/05/2024 3 - 12 [facility] Lymph % 21.9 % Normal 11/05/2024 15 - 45 [facility] MCV 90.5 FL Normal 11/05/2024 81 - 100 [facility] Hct 42.0 % Normal 11/05/2024 37.5 - 49.5 [facility] Platelet 188.0 k/uL Normal 11/05/2024 145 - 400 [facility] Neutro % 63.2 % Normal 11/05/2024 43 - 75 [facility] WBC 9.65 k/uL Normal 11/05/2024 4 - 10.8 [facility] MPV 8.9 FL Normal 11/05/2024 7.5 - 10.4 [facility] Imm Gran % 0.8 % Above high normal 11/05/2024 0.1 - 0.3 [facility] NRBC Abs 0.0 k/uL Normal 11/05/2024 0 - 0.1 [facility] Imm Gran Absolute 0.08 k/uL Above high normal 11/05/2024 0.0 1 - 0.03 [facility] Neutro Absolute 6.1 k/uL Normal 11/05/2024 1.7 - 8.1 [facility] Glucose 154.0 mg/dL 11/03/2024 75 - 110 [facility] Trig 73.0 mg/dL Normal 10/30/2024 10 - 250 [facility] Cholesterol 159.0 mg/dL 10/30/2024 180 - 240 [facility] LDL Direct 74.0 mg/dL Normal 10/30/2024 0 - 129 [facility] HDL 66.0 mg/dL Normal 10/30/2024 36 - 130 [facility] VLDL Chol Calc 15.0 mg/dL 10/30/2024 [facility] LITHIUM SERPL-SCNC 0.49 mmol/L Below low normal 2024 0 .6 - 1.2 [facility] Albumin SerPl BCG-mCnc 4.6 g/dL Normal 2024 3.4 - 5 [facility] AST SERPL W P-5'-P-CCNC 23.0 U/L Normal 2024 15 - 37 [facility] PROT SERPL-MCNC 7.2 g/dL Normal 2024 6.4 - 8.2 [facility] BILIRUB SERPL-MCNC 0.4 mg/dL Normal 2024 - 1 [facility] ALT SERPL W P-5'-P-CCNC 20.0 U/L Normal 2024 11 - 66 [facility] ALP Bld-cCnc 86.0 U/L Normal 2024 38 - 136 [facility] BUN SERPL-MCNC 10.0 mg/dL Normal 2024 7 - 20 [facility] GLUCOSE SERPL-MCNC 166.0 mg/dL Above high normal 2024 74 - 105 [facility] CREAT SERPL-MCNC 1.16 mg/dL Normal 2024 0.7 - 1.3 A [facility] eGFR Comment SEE NOTES Normal 2024 [facility] GFR/BSA PRED.NON BLACK SERPL MDRD-ARVRAT 76.0 mL/min/1.73m2 Normal 2024 [facility] GFR/BSA PRED.BLACK SERPL MDRD-ARVRAT >90 Normal 2024 [facility] CO2 SERPL-SCNC 24.0 mmol/L Normal 2024 21 - 32 [facility] CAL[facility]UM SERPL-MCNC 10.1 mg/dL Normal 2024 8.4 - 10. 6 [facility] Anion Gap3 SerPl-sCnc 9.0 mmol/L Normal 2024 4 - 14 [facility] CHLORIDE SERPL-SCNC 106.0 mmol/L Normal 2024 98 - 1 07 [facility] SODIUM SERPL-SCNC 139.0 mmol/L Normal 2024 135 - 14 5 [facility] Potassium SerPl-sCnc 4.3 mmol/L Normal 2024 3.5 - 5 .1 [facility] PMV BLD AUTO 9.5 fL Normal 2024 9.4 - 12.4 [facility] MCV RBC AUTO 91.7 fL Normal 2024 79 - 92.2 [facility] MONOCYTES NO. BLD AUTO 0.36 x10(3)/mcL Normal 2024 0.3 - 0.82 [facility] NRBC 0.0 % Normal 2024 - [facility] RBC NO. BLD AUTO 5.51 x10(6)/mcL Normal 2024 4.63 - 6.08 [facility] HCT VFR BLD AUTO 50.5 % Normal 2024 40.1 - 51 [facility] WBC NRBC COR NO. BLD AUTO 8.3 x10(3)/mcL Normal 2024 4.2 - 9.1 [facility] MONOCYTES NFR BLD AUTO 4.4 % Normal 2024 3 - 10 [facility] LYMPHOCYTES NO. BLD AUTO 2.17 x10(3)/mcL Normal 2024 1.32 - 3.57 [facility] Baso Absolute 0.03 x10(3)/mcL Normal 2024 0.01 - 0. 08 [facility] LYMPHOCYTES NFR BLD AUTO 26.3 % Normal 2024 17 - 45 [facility] NEUTROPHILS NFR BLD AUTO 65.6 % Normal 2024 42 - 72 [facility] Diff Type Auto Diff Normal 2024 [facility] EOSINOPHIL NO. BLD AUTO 0.24 x10(3)/mcL Normal 2024 0.04 - 0.54 [facility] EOSINOPHIL NFR BLD AUTO 2.9 % Normal 2024 0 - 6 [facility] RDW RBC AUTO-RTO 12.8 % Normal 2024 11.6 - 14.4 [facility] Baso 0.4 % Normal 2024 0 - 2 [facility] HGB BLD-MCNC 16.6 g/dL Normal 2024 13.7 - 17.5 [facility] PLATELET NO. BLD AUTO 229.0 x10(3)/mcL Normal 2024 155 - 370 [facility] MCH RBC QN AUTO 30.1 pg Normal 2024 25.7 - 32.2 A [facility] Imm Granulocytes/leuk NFr Bld Auto 0.4 % Normal 2024 0 - 0.8 [facility] NEUTROPHILS NO. BLD AUTO 5.43 x10(3)/mcL Above high normal 2024 1.78 - 5.38 [facility] MCHC RBC AUTO-MCNC 32.9 g/dL Normal 2024 32.3 - 36. 5 [facility] RDW RBC AUTO-RTO 13.0 % Normal 09/22/2024 11.6 - 14.4 [facility] MCV RBC AUTO 90.4 fL Normal 09/22/2024 79 - 92.2 [facility] HGB BLD-MCNC 16.3 g/dL Normal 09/22/2024 13.7 - 17.5 [facility] GAH PLATELET NO. BLD AUTO 236.0 x10(3)/mcL Normal 09/22/2024 155 - 370 [facility] MCH RBC QN AUTO 30.5 pg Normal 09/22/2024 25.7 - 32.2 A [facility] HCT VFR BLD AUTO 48.3 % Normal 09/22/2024 40.1 - 51 [facility] MCHC RBC AUTO-MCNC 33.7 g/dL Normal 09/22/2024 32.3 - 36. 5 [facility] WBC NRBC COR NO. BLD AUTO 10.7 x10(3)/mcL Above high normal 09/22/2024 4.2 - 9.1 [facility] PMV BLD AUTO 9.6 fL Normal 09/22/2024 9.4 - 12.4 [facility] AH RBC NO. BLD AUTO 5.34 x10(6)/mcL Normal 09/22/2024 4.63 - 6.08 [facility] CREAT SERPL-MCNC 1.07 mg/dL Normal 09/22/2024 0.7 - 1.3 [facility] BUN SERPL-MCNC 12.0 mg/dL Normal 09/22/2024 7 - 20 [facility] GFR/BSA PRED.NON BLACK SERPL MDRD-ARVRAT 84.0 mL/min/1.73m2 Normal 09/22/2024 [facility] GFR/BSA PRED.BLACK SERPL MDRD-ARVRAT >90 Normal 09/22/2024 [facility] eGFR Comment SEE NOTES Normal 09/22/2024 [facility] GLUCOSE SERPL-MCNC 98.0 mg/dL Normal 09/22/2024 74 - 105 [facility] CALCIUM SERPL-MCNC 10.1 mg/dL Normal 09/22/2024 8.4 - 10. 6 [facility] Anion Gap3 SerPl-sCnc 10.0 mmol/L Normal 09/22/2024 4 - 14 [facility] CO2 SERPL-SCNC 24.0 mmol/L Normal 09/22/2024 21 - 32 [facility] SODIUM SERPL-SCNC 140.0 mmol/L Normal 09/22/2024 135 - 14 5 [facility] CHLORIDE SERPL-SCNC 106.0 mmol/L Normal 09/22/2024 98 - 1 07 [facility] Potassium SerPl-sCnc 4.1 mmol/L Normal 09/22/2024 3.5 - 5 .1 [facility] TSH SERPL DL<=0.005 MIU/L-ACNC 1.12 uIU/mL Normal 09/22/2024 0.36 - 3.74 [facility] fentaNYL [Presence] in Urine by Screen method None detected Normal 09/20/2024 - [facility] BZE UR QL SCN None detected Normal 09/20/2024 - [facility] PCP UR QL SCN None detected Normal 09/20/2024 - A [facility] AMPHETAMINES UR QL SCN None detected Normal 09/20/2024 - [facility] OPIATES UR QL SCN None detected Normal 09/20/2024 - [facility] CANNABINOIDS UR QL SCN Positive Abnormal 09/20/2024 - [facility] BARBITURATES UR QL SCN None detected Normal 09/20/2024 - [facility] BENZODIAZ UR QL SCN None detected Normal 09/20/2024 - [facility] Buprenorphine Ur Ql None detected Normal 09/20/2024 - [facility] DRUG SCREEN COMMENT UR-IMP SEE NOTES Normal 09/20/2024 [facility] Methadone Ur Ql Scn None detected Normal 09/20/2024 - [facility] Urine Culture Urine culture reflex not indicated Normal 09/20/2024 [facility] Urine Microscopy Has been added Normal 09/20/2024 [facility] RBC NO./AREA URNS AUTO 0-2 Normal 09/20/2024 - [facility] BACTERIA NO./AREA URNS AUTO Negative Normal 09/20/2024 - [facility] WBC NO./AREA URNS AUTO 0-2 Normal 09/20/2024 - [facility] UA DIPSTICK PNL UR STRIP.AUTO Negative Normal 09/20/2024 - [facility] Urine Microscopic DONE Normal 09/20/2024 A [facility] Squamous Epi Occ Normal 09/20/2024 0 - 2 [facility] Hyaline casts in Urine sediment 0-1 Normal 09/20/2024 0 - 1 [facility] Urine Source Urine Clean Catch Normal 09/20/2024 [facility] Extra urine robles tube Sample in Lab Normal 09/20/2024 [facility] SARS-CoV-2 Ag Upper resp Ql IA.rapid Negative Normal 09/20/2024 [facility] SARS CoV2 testing Performed using dotloopW COVID 19 Antigen test Normal 09/20/2024 [facility] SARS-CoV-2 Ag Upper resp Ql IA.rapid Negative Normal 09/20/2024 [facility] SARS CoV2 Source Nares Normal 09/20/2024 [facility] WBC NRBC COR NO. BLD AUTO 13.5 x10(3)/mcL Above high normal 09/20/2024 4.2 - 9.1 [facility] MONOCYTES NFR BLD AUTO 7.3 % Normal 09/20/2024 3 - 10 [facility] LYMPHOCYTES NFR BLD AUTO 26.0 % Normal 09/20/2024 17 - 45 [facility] RBC NO. BLD AUTO 5.27 x10(6)/mcL Normal 09/20/2024 4.63 - 6.08 [facility] PLATELET NO. BLD AUTO 236.0 x10(3)/mcL Normal 09/20/2024 155 - 370 [facility] MCH RBC QN AUTO 30.6 pg Normal 09/20/2024 25.7 - 32.2 A [facility] Baso Absolute 0.05 x10(3)/mcL Normal 09/20/2024 0.01 - 0. 08 [facility] NRBC 0.0 % Normal 09/20/2024 - [facility] LYMPHOCYTES NO. BLD AUTO 3.51 x10(3)/mcL Normal 09/20/2024 1.32 - 3.57 [facility] MONOCYTES NO. BLD AUTO 0.98 x10(3)/mcL Above high normal 09/20/2024 0.3 - 0.82 [facility] EOSINOPHIL NFR BLD AUTO 2.2 % Normal 09/20/2024 0 - 6 [facility] MCV RBC AUTO 90.1 fL Normal 09/20/2024 79 - 92.2 [facility] Diff Type Auto Diff Normal 09/20/2024 [facility] NEUTROPHILS NFR BLD AUTO 63.7 % Normal 09/20/2024 42 - 72 [facility] EOSINOPHIL NO. BLD AUTO 0.3 x10(3)/mcL Normal 09/20/2024 0.04 - 0.54 [facility] RDW RBC AUTO-RTO 12.9 % Normal 09/20/2024 11.6 - 14.4 [facility] MCHC RBC AUTO-MCNC 33.9 g/dL Normal 09/20/2024 32.3 - 36. 5 [facility] NEUTROPHILS NO. BLD AUTO 8.62 x10(3)/mcL Above high normal 09/20/2024 1.78 - 5.38 [facility] Imm Granulocytes/leuk NFr Bld Auto 0.4 % Normal 09/20/2024 0 - 0.8 [facility] HGB BLD-MCNC 16.1 g/dL Normal 09/20/2024 13.7 - 17.5 [facility] HCT VFR BLD AUTO 47.5 % Normal 09/20/2024 40.1 - 51 [facility] Baso 0.4 % Normal 09/20/2024 0 - 2 [facility] PMV BLD AUTO 9.3 fL Below low normal 09/20/2024 9.4 - 12. 4 [facility] Extra Red Top tube Sample in Lab Normal 09/20/2024 [facility] LITHIUM SERPL-SCNC 1.15 mmol/L Normal 09/20/2024 0.6 - 1. 2 [facility] ETHANOL SERPL-MCNC 3.0 mg/dL Normal 09/20/2024 - 5 [facility] ALP Bld-cCnc 100.0 U/L Normal 09/20/2024 38 - 136 [facility] BILIRUB SERPL-MCNC 0.6 mg/dL Normal 09/20/2024 - 1 [facility] PROT SERPL-MCNC 7.0 g/dL Normal 09/20/2024 6.4 - 8.2 [facility] GFR/BSA PRED.BLACK SERPL MDRD-ARVRAT 88.0 mL/min/1.73m2 Normal 09/20/2024 [facility] AST SERPL W P-5'-P-CCNC 34.0 U/L Normal 09/20/2024 15 - 37 [facility] GFR/BSA PRED.NON BLACK SERPL MDRD-ARVRAT 73.0 mL/min/1.73m2 Normal 09/20/2024 [facility] CREAT SERPL-MCNC 1.21 mg/dL Normal 09/20/2024 0.7 - 1.3 A [facility] ALT SERPL W P-5'-P-CCNC 30.0 U/L Normal 09/20/2024 11 - 66 [facility] eGFR Comment SEE NOTES Normal 09/20/2024 [facility] GLUCOSE SERPL-MCNC 157.0 mg/dL Above high normal 09/20/2024 74 - 105 [facility] BUN SERPL-MCNC 23.0 mg/dL Above high normal 09/20/2024 7 - 2 0 [facility] CO2 SERPL-SCNC 27.0 mmol/L Normal 09/20/2024 21 - 32 [facility] Albumin SerPl BCG-mCnc 3.8 g/dL Normal 09/20/2024 3.4 - 5 [facility] Anion Gap3 SerPl-sCnc 4.0 mmol/L Normal 09/20/2024 4 - 14 [facility] CALCIUM SERPL-MCNC 8.7 mg/dL Normal 09/20/2024 8.4 - 10.6 [facility] CHLORIDE SERPL-SCNC 109.0 mmol/L Above high normal 98 - 107 [facility] SODIUM SERPL-SCNC 140.0 mmol/L Normal 09/20/2024 135 - 14 5 [facility] Potassium SerPl-sCnc 3.4 mmol/L Below low normal 09/20/2024 3.5 - 5.1 [facility] Problems Problem Status Onset Date Problem Type Date of Resolution Source Withdrawal syndrome (HC Code) active 2025 ProblemAct [facility] Agitation active 2025 ProblemAct [facility] Suicidal ideation active EncounterDiagnosisAct [facility] ADHD active 2025 ProblemAct [facility] Aggressive behavior active EncounterDiagnosisAc t [facility] 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 EncounterDiagnosisAct [facility] Cellulitis of right foot active EncounterDiagnosisAct [facility] Abscess of right foot active EncounterDiagnosis Act [facility] Polysubstance abuse active 2025 ProblemAct [facility] Withdrawal from benzodiazepine, with unspecified complication (HC Code) (HC CODE) active EncounterDiagnosisAct [facility] Encounters Encounter Type Encounter Reason Primary Diagnosis Location Date Inpatient Cellulitis and abscess of foot, except toes Cellulitis and abscess of foot, except toes [facility] 09/18/2025 Emergency [id number] HURTS//NNA NAUSEA WITH VOMITING, UNSPECIFIED [facility] 11/05/2024 Emergency [id number] BODY PAIN//EA PAIN IN LEFT FOOT [facility] 11/04/2024 Emergency HEAD PAIN ALCOHOL USE, UNSPECIFIED WITH INTOXICATION, UNSPECIFIED [facility] 11/02/2024 Emergency MFA COVID RPM 11/02/2024 Ambulatory TRAUM SUBRAC HEM WITH LOC STATUS UNKNOWN, INITIAL ENCOUNTER [facility] 10/30/2024 Emergency Medical Clearance Encounter for other general examination [facility] 10/21/2024 Emergency Psychiatric Evaluation Homelessness unspecified [facility] 10/21/2024 Emergency Pruritus Pruritus, unspecified [facility] 10/21/2024 Emergency Psychiatric Evaluation Unspecified mood (affective) disorder [facility] 10/17/2024 Emergency Foot Pain Blister (nonther mal), left foot, initial encounter [facility] 10/16/2024 Emergency sleep deprived sleep deprived [facility] 10/15/2024 Emergency LACERATION W/O F B OF RIGHT EYELID AND PERIOCULAR AREA, INIT [facility] 10/04/2024 Emergency PSYCH EVAUL [facility] 10/04/2024 Emergency AMS ALTERED MENTAL STATUS, UNSPECIFIED [facility] 10/03/2024 Emergency MFA COVID RPM 10/03/2024 Emergency KNEE PAIN [facility] 09/30/2024 Emergency MFA COVID RPM 09/30/2024 Emergency R FOOT L KNEE INJ SPRAIN OF UNSP ECIFIED LIGAMENT OF LEFT ANKLE, INIT ENCNTR [facility] 09/29/2024 Emergency MFA COVID RPM 09/29/2024 Emergency GENRAL SICKNESS PAIN IN RIGHT AN KLE AND JOINTS OF RIGHT FOOT [facility] 09/25/2024 Emergency MFA COVID RPM 09/25/2024 Inpatient Bipolar disorder, current episode manic severe with psychotic features Bipolar disorder, current episode manic severe with psychotic features [facility] 09/20/2024 Emergency depressed/hallucinat ing Unspecified psychosis not due to a substance or known physiological condition [facility] 09/20/2024 Care Team Organization Name Specialty Phone Email Start Date End [facility] 09/18/2025 [facility] 02/03/2025 06/24/2025 [facility] , No-PCP Primary [facility] , No-PCP Primary Care 02/202511/17/2024 [facility] FRANCHESCA ROLON Primary Care 11/05/2024 [facility] Unassigned User Primary Care 11/05/2024 [facility] 11/05/2024 [facility] Full Panel 11/04/2024 12/09/2024 [facility] SHOSHANA VARELA Primary Care 11/04/2024 [facility] UNASSIGNED UNASSIGNED Primary Care 11/04/2024 [facility] 11/02/2024 [facility] Full Panel NO PCP/FAM MD Primary Care 11/01/2024 [facility] 10/30/2024 [facility] NO PCP/FAM MD Primary Care 10/30/2024 [facility] 10/22/202412/08 [facility] NONE PCP Primary Care 10/21/2024 [facility] 10/20/2024 01/17/2025 [facility] 10/20/2024 12/09/2024 [facility] 10/20/2024 [facility] 10/20/2024 [facility] NEMSIS Panel 10/18/202401/15 [facility] 10/18/2024 01/14/2025 [facility] 10/16/2024 [facility] NONE PCP Primary Care 10/16/[address] [facility] 10/15/2024 [facility] 10/05/2024 11/05/2024 [facility] 10/04/2024 MFA COVID RPM 09/30/2024 [facility] Full Panel NO PCP/FAM MD Primary Care 09/30/2024 [facility] NO PCP/FAM MD Primary Care 09/29/2024 [facility] 09/29/2024 MFA COVID RPM 09/29/2024 09/25/2024 [facility] 09/25/2024 [facility] 09/24/2024 [facility] 09/24/2024 [facility] 09/21/2024 [facility] 09/20/2024 [facility] 09/20/2024
--- OUTSIDE RECORDS SUMMARY | 2025-10-02 20:56 | XMS_ITS | Encounter Summary ---
Author Organization [facility] Address [address] [place] [address] Care Team Providers Care Risk Control Representative Name Role Phone Unknown, Provider Primary Care Provider Gael ilangela Encounter Details Date Type Department Care Team (Latest Contact Info) Description 09/28/2025 Travel Social History Tobacco Use Types Packs/Day Years Used Date Smoking Tobacco: Never Assessed Comments:Unable to assess as patient is minimally [...] any time in the past 12 [facility], were you homeless or living in a detention (including now)? Yes 09/28/2025 [facility] Utilities Answer Date Recorded In the past [...] AM EST documented as of this encounter Plan of Treatment Not on file documented as of this encounter Visit Diagnoses Not on filedocumented in this encounter Additional Health Concerns Infection Onset Date Last Indicated Resolved Time Rule-Out Respiratory Virus 09/28/2025 09/28/2025 1 11/28/2024 3:39 AM EST documented as of this encounter Care Teams Risk Control Representative Relationship Specialty Start Date End Date Unknown, Provider, [address] [place] [address] PCP - General 09/28/25 documented as of this encounter
--- OUTSIDE RECORDS SUMMARY | 2025-10-02 20:56 | XMS_ITS | Patient Health Record ---
Author Organization [facility] Address [address] [place] [place] [address] Phone [phone] Care Team Providers Care Social Service Assistant Name Role Phone DR. RAF BRENNAN DDS Unavailable [phone] Allergies No Known Allergies Reason For Referral No Information Medications Medication SIG (Take, Route, Frequency, Duration) Notes Start Date End Date Diagnosis (ICD Code) Status predniSONE 20 MG Tablet 1 tablet Orally Once a day Active Amoxicillin 875 MG Tablet 1 tablet Orally Twice a day Active Multivitamin Active OLANZapine 15 MG Tablet 1 tablet Orally Once a day Active Wellbutrin XL 150 MG Tablet Extended Release 24 Hour 1 tablet in the morning Orally Once a day Active Ibuprofen 600 MG Tablet 1 tablet with food or milk as needed Orally q12h prn pain 02/21/2023 Active Prazosin HCl 2 MG Capsule 1 capsule at bedtime Orally Once a day Active Protonix 40 MG Packet 1 packet mixed with apple juice or applesauce Orally Once a day Active Vivitrol 380 MG Suspension Reconstituted as directed Intramuscular Active traZODone HCl Active Gabapentin 800 MG Tablet 1 tablet Orally Once a day Active Social History Sex Observation Social History Observation Description Sex Observation Male Sexual Orientation Social History Observation Description Sexual Orientation Straight or heterose xual Gender Identity Social History Observation Description Gender Identity Male Social History Section Notes: smoker Plan Of Treatment No Information Medical (General) History Medical History History ICD Code bipolar disorder anxiety substance abuse PTSD ADHD insomnia Chronic pain gastroesophageal reflux disease (GERD)
--- OUTSIDE RECORDS SUMMARY | 2025-10-02 20:56 | XMS_ITS | Clinical Summary ---
Author Organization [address] Address [address] [place] [phone] Phone Care Team Providers [facility] Name Role Phone No, Pcp (Do Not Change Name) Primary Care Provid er Unavailable Medications folic acid (FOLVITE) 1 mg tablet Take 1 tablet (1 mg total) by mouth daily. 30 tablet 2025 2:05 PM EST 5 10/24/20 25 Active gabapentin (NEURONTIN) 600 mg tablet Take 1 tablet (600 mg total) by mouth 3 (three) times daily. 90 tablet 2 2025 2:05 PM EST 5 12/22/19 26 Active thiamine (VITAMIN B1) 100 mg tablet Take 1 tablet (100 mg total) by mouth daily. 30 tablet 2 2025 2:05 PM EST 5 12/23/19 26 Active traZODone (DESYREL) 150 mg tablet Take 1 tablet (150 mg total) by mouth nightly. 30 tablet 2025 2:05 PM EST 5 10/23/20 25 Active OLANZapine (ZYPREXA) 10 mg tablet Take 1 tablet (10 mg total) by mouth nightly. 30 tablet 1 2025 2:05 PM EST 5 11/22/19 26 Active OLANZapine (ZYPREXA) 5 mg tablet Take 1 tablet (5 mg total) by mouth 2 (two) times daily. 60 tablet 5 09/23/20 25 Discontinu ed(Stop Taking at Discharge) OLANZapine zydis (ZYPREXA) [address] 1 tablet (5 mg total) onto the tongue 2 (two) times daily. 60 tablet 2 5 09/23/20 25 Discontinu ed(Stop Taking at Discharge) Active Problems Problem Noted Date Diagnosed Date Polysubstance abuse 2025 Withdrawal syndrome (HC Code) 2025 Agitation 2025 ADHD 2025 Resolved Problems Problem Noted Date Diagnosed Date Resolved Date Abscess of right foot 09/19/20252024 Encounters Date Type Department Care Team Description 09/18/2025 1:12 PM EST - 2025 2:09 PM EST [place] [address] Timoteo Rivera MD Sander, MD Ana James, MD Johny Yang, MD Marcio Stark Naiha, MD Partheepan, MD Josiah Abscess of right foot (Primary Dx); Cellulitis of right foot; Suicidal ideation; Behavioural, emotional, and social difficulties (BESD); Aggressive behavior; Attention deficit hyperactivity disorder (ADHD), unspecified ADHD type; Polysubstance abuse (HC CODE); Withdrawal from benzodiazepine, with unspecified complication (HC Code) (HC CODE); 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 4 or more times a week 09/19/2025 Q2: How many drinks containi ng alcohol do you have on a typical day when you are drinking? 5 or 6 Q3: How often do you have si x or more drinks on one occasion? Weekly 09/19/2025 Hunger Vital Sign Answer Date Recorded Within the past 12 months, y ou worried that your food would run out before you got the money to buy more. Never true 09/19/20 25 Within the past 12 months, t he food you bought just didn't last and you didn't have money to get more. Never true 09/19/2025 PRAPARE - Transportation Answer Date Re corded In the past 12 months, has l ack of transportation kept you from medical appointments or from getting medications? No 09/05 In the past 12 months, has l ack of transportation kept you from meetings, work, or from getting things needed for daily living? No 09/19/2025 [facility] Utilities Answer Date Recorded In the past 12 months has [email or web address] electric, gas, oil, or water company threatened to shut off services in your home? No 09/19/2025 Housing Stability Answer Date Recorded What is your living situation today? I d o not have a steady place to live (temporarily staying with others, in a hotel, in a retirement, living outside on the street, on a beach, in a car, abandoned building, bus or train station, or in a park) 09/19/2025 Housing Stability Not on file 09/19/2025 Interpersonal Safety Answer Date Record ed Is there anyone in your life that is hurting or threatening you in anyway? no 09/19/2025 Physical Indicators of Abuse No evidence of phys ical abuse 09/19/2025 Sex and Gender Information Value Date Recorded Sex Assigned at Not on file Legal Sex Male 1:10 PM EST Gender Identity Not on file Sexual Orientation Not on file Last Filed Vital Signs Vital Sign Reading Time Taken Comments Blood Pressure 94/59 2025 9:27 AM EST Pulse 71 2025 9:27 AM EST Temperature 36.4 C (97.6 F) 2025 9:27 AM EST Respiratory Rate 16 2025 9:27 AM EST Oxygen Saturation 97% 2025 9:27 AM EST Inhaled Oxygen Concentration - - Weight 65.7 kg (144 lb 13.5 oz) 09/19/2025 8:00 AM EST Height 172.7 cm (5' 8 ) 09/19/2025 1:52 AM EST Body Mass Index 22.02 09/19/2025 1:52 AM EST Plan of Treatment Health Maintenance Due Date Last Done Comments Hepatitis C screening 2006 Covid-19 vaccine series ( season) 2025 Tetanus adult (Td q 10,TDAP once) 01/23/2035 01/23/2025, 02/14/1994, 01/15/1990, Additional history exists RSV Immunization (1 - 1-dose 75+ series) 2063 HIV screening Completed 11/06/2024 Influenza vaccine Completed 09/03/2025 Meningococcal B Vaccine Aged Out No l onger eligible based on patient's age to complete this topic Meningococcal Vaccine Aged Out No maco jonn eligible based on patient's age to complete this topic Pneumococcal Vaccine (2 - 49 years) Aged Out No longer eligible based on patient's age to complete this topic Procedures Procedure Name Priority Date/Time Associated Diagnosis Comments BASIC METABOLIC PANEL Early AM 2025 5:10 AM EST CBC AND DIFFERENTIAL Early AM 2025 5:10 AM EST ALT Add-On 2025 5:10 AM EST AST Add-On 2025 5:10 AM EST BASIC METABOLIC PANEL Early AM 2025 5:10 AM EST CBC WITH AUTO DIFFERENTIAL Early AM 2025 5:10 AM EST EKG Routine 09/22/2025 8:17 PM EST CBC WITHOUT DIFFERENTIAL Early AM 09/21/2025 6:45 AM EST BASIC METABOLIC PANEL Early AM 09/21/2025 6:41 AM EST BASIC METABOLIC PANEL Early AM 09/21/2025 6:41 AM EST CBC AND DIFFERENTIAL Early AM 09/19/2025 6:20 AM EST CBC WITH AUTO DIFFERENTIAL Early AM 09/19/2025 6:20 AM EST HEMOGLOBIN A1C Early AM 09/19/2025 6:20 AM EST BASIC METABOLIC PANEL Early AM 09/19/2025 6:19 AM EST BASIC METABOLIC PANEL Early AM 09/19/2025 6:19 AM EST PHOSPHORUS (BH GH L LMW YH) Early AM 09/19/2025 6:19 AM EST MAGNESIUM Early AM 09/19/2025 6:[address] FOOT RIGHT W IV CONTRAST Within 2 hours (STAT) 09/18/2025 11:10 PM EST COMPREHENSIVE METABOLIC PANEL Routine 09/18/2025 6:05 PM EST CBC AND DIFFERENTIAL Routine 09/18/2025 6:05 PM EST COMPREHENSIVE METABOLIC PANEL Routine 09/18/2025 6:05 PM EST CBC WITH AUTO DIFFERENTIAL Routine 09/18/2025 6:05 PM EST ALCOHOL PANEL, GC (BH LM YH) Routine 09/18/2025 6:05 PM EST TOXICOLOGY SCREEN, SERUM (BH L) Routine 09/18/2025 6:05 PM EST SEDIMENTATION RATE (ESR) Routine 09/18/2025 6:05 PM EST C-REACTIVE PROTEIN (CRP) Routine 09/18/2025 6:05 PM EST XR FOOT RIGHT AP LATERAL AND OBLIQUE Within 1 hour (STAT) 09/18/2025 2:42 PM EST XR CHEST PA AND LATERAL Within 1 hour (STAT) 09/18/2025 2:42 PM EST SARS-COV-2 (COVID-19)/INFLUENZA A+B/RSV BY RT-PCR ([facility] LMW YH) Routine 09/18/2025 2:08 PM EST INSERT PERIPHERAL IV Routine 09/18/2025 1:13 PM EST from Last 3 Months Results * (ABNORMAL) Basic metabolic panel (2025 5:10 AM EST) Only the most recent of3 resultswithin the time period is included. Sodium 145(H) 136 - 144 mmol/L 2025 6:38 AM [facility] Potassium 4.2 3.3 - 5.3 mmol/L 2025 6:38 AM [facility] Chloride 108(H) 98 - 107 mmol/L 2025 6:38 AM [facility] CO2 24 20 - 30 mmol/L 2025 6:38 AM [facility] Anion Gap 13 7 - 17 2025 6:38 AM [facility] Glucose 87 70 - 100 mg/dL 2025 6:38 AM [facility] BUN 14 6 - 20 mg/dL 2025 6:38 AM [facility] Creatinine 0.97 0.40 - 1.30 mg/dL 2025 6:38 AM [facility] Calcium 9.4 8.8 - 10.2 mg/dL 2025 6:38 AM [facility] BUN/Creatinine Ratio 14.4 8.0 - 23.0 2025 6:38 AM [facility] eGFR (Creatinine) >60 >=60 mL/min/1.73 m2 2025 6:38 AM [facility] Comment: [facility] utilizes CKD-EPI Creatinine 2020 to report eGFR. Values < 60 mL/min/1.73 m2 may indicate CKD if present for more than three months AND creatinine is at steady state. The eGFR provides a rough estimate of kidney function. For further guidance, please refer to the CKD: Adult Contact Lens Molder Signature pathway. Creatinine Delta 0.11 See Comment 025 6:38 AM [facility] Comment: Delta creatinine is the difference between the current creatinine and the most recent prior creatinine (if available within the previous 12 months). It is intended to detect significant changes in kidney function for patients whose creatinine is <5 mg/dL. A delta is not calculated for patients whose baseline creatinine is >=5 mg/dL or those who do not have a baseline within the last year. The following deltas will flag as critical (triggering a call from the laboratory): a) Deltas >= +1.5 mg/dL for patients with baseline creatinine <= 1.5 mg/dL. b) Deltas >= +3 mg/dL for patients with baseline creatinine between 1.5 and 5 mg/dL. Blood Venipuncture / Unknown 2025 5:10 AM EST 2025 6:13 AM EST us Josiah Saldaña MD LAB BLOOD ORDERABLES Fin al Result Performing Organization Address City/State/[facility] Co de Phone Number [address] [phone] * CBC auto differential (2025 5:10 AM EST) Only the most recent of3 resultswithin the time period is included. WBC 8.0 4.0 - 11.0 x1000/ L 2025 6:21 AM [facility] RBC 5.32 4.00 - 6.00 M/ L 2025 6:21 AM [facility] Hemoglobin 15.3 13.2 - 17.1 g/dL 2025 6:21 AM [facility] Hematocrit 47.70 38.50 - 50.00 % 2025 6:21 AM [facility] MCV 89.7 80.0 - 100.0 fL 2025 6:21 AM [facility] MCH 28.8 27.0 - 33.0 pg 2025 6:21 AM [facility] MCHC 32.1 31.0 - 36.0 g/dL 2025 6:21 AM [facility] RDW-CV 14.4 11.0 - 15.0 % 2025 6:21 AM [facility] Platelets 216 150 - 420 x1000/ L 2025 6:21 AM [facility] MPV 8.9 8.0 - 12.0 fL 2025 6:21 AM [facility] Neutrophils 50.3 39.0 - 72.0 % 2025 6:21 AM [facility] Lymphocytes 38.4 17.0 - 50.0 % 2025 6:21 AM [facility] Monocytes 6.1 4.0 - 12.0 % 2025 6:21 AM [facility] Eosinophils 4.5 0.0 - 5.0 % 2025 6:21 AM [facility] Basophil 0.5 0.0 - 1.4 % 2025 6:21 AM [facility] Immature Granulocytes 0.2 0.0 - 1.0 % 2025 6:21 AM [facility] nRBC 0.0 0.0 - 1.0 % 2025 6:21 AM [facility] Absolute Lymphocyte Count 3.09 0.60 - 3.70 x 1000/ L 2025 6:21 AM [facility] Monocyte Absolute Count 0.49 0.00 - 1.00 x 1000/ L 2025 6:21 AM [facility] Eosinophil Absolute Count 0.36 0.00 - 1.00 x 1000/ L 2025 6:21 AM [facility] Basophil Absolute Count 0.04 0.00 - 1.00 x 1000/ L 2025 6:21 AM [facility] Absolute Immature Granulocyte Count 0.02 0.00 - 0.30 x 1000/ L 2025 6:21 AM [facility] Absolute nRBC 0.00 0.00 - 1.00 x 1000/ L 2025 6:21 AM [facility] ANC (Abs Neutrophil Count) 4.04 2.00 - 7.60 x 1000/ L 2025 6:21 AM [facility] Blood Venipuncture / Unknown 2025 5:10 AM EST 2025 6:10 AM EST us Josiah Saldaña MD LAB BLOOD ORDERABLES Fin al Result Performing Organization Address [facility] Co de Phone Number [address] [phone] * ALT (2025 5:10 AM EST) Alanine Aminotransferase (ALT) 29 9 - 59 U/L 2025 10:05 AM [facility] Comment:Calcium dobesilate c an cause artificially low ALT results at therapeutic concentrations Blood Venipuncture / Unknown 2025 5:10 AM EST 2025 6:13 AM EST us Sheryl Muro APRN LAB BLOOD ORDERABLES Final Re sult Performing Organization Address [facility] Co de Phone Number [address] [phone] * (ABNORMAL) AST (2025 5:10 AM EST) Aspartate Aminotransferase (AST) 48(H) 10 - 35 U/L 2025 10:05 AM [facility] Blood Venipuncture / Unknown 2025 5:10 AM EST 2025 6:13 AM EST us Sheryl Muro APRN LAB BLOOD ORDERABLES Final Re sult Performing Organization Address [facility] Co de Phone Number [address] [phone] * EKG (09/22/2025 8:17 PM EST) Heart Rate 75 bpm [facility] ECG QRS Interval 90 ms [facility] ECG QT Interval 414 ms [facility] ECG QTC Interval 462 ms [facility] ECG P [place] 59 deg [facility] ECG QRS [place] 71 deg [facility] ECG T Wave [place] 48 deg [facility] ECG P-R Interval 124 msec [facility] ECG SEVERITY Normal ECG severity [facility] ECG Comment::Normal sinus rhythm with sinus arrhythmia:Normal ECG:Electronically Signed On 2025 11:10:19 EST by Brian Peres MD OTHER / Unknown 09/22/2025 8 :17 PM EST us Josiah Saldaña MD ECG ORDERABLES Final Re sult [facility] ECG * CBC without differential (09/21/2025 6:45 AM EST) WBC 9.0 4.0 - 11.0 x1000/ L 09/21/2025 7:01 AM [facility] RBC 5.39 4.00 - 6.00 M/ L 09/21/2025 7:01 AM [facility] Hemoglobin 15.4 13.2 - 17.1 g/dL 09/21/2025 7:01 AM [facility] Hematocrit 47.70 38.50 - 50.00 % 09/21/2025 7:01 AM [facility] MCV 88.5 80.0 - 100.0 fL 09/21/2025 7:01 AM [facility] MCH 28.6 27.0 - 33.0 pg 09/21/2025 7:01 AM [facility] MCHC 32.3 31.0 - 36.0 g/dL 09/21/2025 7:01 AM [facility] RDW-CV 14.1 11.0 - 15.0 % 09/21/2025 7:01 AM [facility] Platelets 203 150 - 420 x1000/ L 09/21/2025 7:01 AM [facility] MPV 8.8 8.0 - 12.0 fL 09/21/2025 7:01 AM [facility] ANC (Abs Neutrophil Count) 5.92 2.00 - 7.60 x 1000/ L 09/21/2025 7:01 AM [facility] Blood Venipuncture / Unknown 09/21/2025 6:45 AM EST 09/21/2025 6:45 AM EST Wily Mcclain MD LAB BLOOD ORDERABLES Final Result [address] [phone] * Hemoglobin A1C (09/19/2025 6:20 AM EST) Hemoglobin A1c 5.5 4.0-5.6 % % 09/19/2025 10:03 AM EST [facility] Comment: Hemoglobin A1c values of 5.7-6.4 % identify individuals with an increased risk for future diabetes and to whom the term pre-diabetes may be applied. Hemoglobin A1c values greater than 6.4% on more than one occasion are diagnostic of diabetes. Lowering HbA1c to below 7% is considered to reduce microvascular and neuropathic complications of diabetes. This boronate affinity Hb A1c method provides accurate analytical results in the presence of nearly all Hb variants. Hb F higher than 10% of total Hb may yield falsely low results. Conditions that shorten red cell survival, such as the presence of unstable hemoglobins like Hb SS, Hb CC, and Hb SC, or other causes of hemolytic anemia may yield falsely low results. Iron deficiency anemia may yield falsely high results. Estimated Average Glucose mg/dL 111 mg/dL 09/19/2025 10:03 AM EST [facility] Comment:Estimated average gl ucose (eAG) is a calculated value designed to estimate the expected average blood glucose level throughout the day from a single measurement of glycated hemoglobin A1C (HbA1c) and follows the calculation proposed by the [place] [employer] (Diabetes Care 31: 1-6, 2008). It may have less accuracy in children, women and patients with certain erythrocyte disorders. Blood Venipuncture / Unknown 09/19/2025 6:20 AM EST 09/19/2025 6:28 AM EST Jaime Perez MD LAB BLOOD ORDERABLES Final Result [address] [phone] * Phosphorus (09/19/2025 6:19 AM EST) Phosphorus 2.6 2.2 - 4.5 mg/dL 09/19/2025 6:57 AM EST [facility] Blood Venipuncture / Unknown 09/19/2025 6:19 AM EST 09/19/2025 6:29 AM EST Jaime Perez MD LAB BLOOD ORDERABLES Final Result Performing Organization Address [facility]/ZIP Co de Phone Number [address] [phone] * Magnesium (09/19/2025 6:19 AM EST) Magnesium 1.9 1.7 - 2.4 mg/dL 09/19/2025 6:57 AM EST [facility] Blood Venipuncture / Unknown 09/19/2025 6:19 AM EST 09/19/2025 6:29 AM EST Jamie Perez MD LAB BLOOD ORDERABLES Final Result Performing Organization Address [facility] Phone Number [address] [phone] * CT Foot Right w IV Contrast (09/18/2025 11:10 PM EST) Anatomical Region Laterality Modality Foot, Ankle, Ortho Foot Right Computed Tomography 09/18/2025 11:3 9 PM EST Impressions 09/19/2025 12:10 AM EST Multiple rim-enhancing subcutaneous fluid collections along the lateral right foot adjacent to the plantar aspect of the fifth metatarsal which may reflect abscesses or phlegmon . There is diffuse lower extremity tissue edema/cellulitis. [facility] Communications Center: Routine. Report initiated by: Chino Scruggs MD Reported and signed by: Isadora Mackay MD Narrative 09/19/2025 12:10 AM EST HISTORY: swelling base of R 5th metatarsal, foot pain, difficulty ambulating TECHNIQUE: CT Lower Extremity after administration of IV contrast. Multiplanar reconstructions were generated from the source data. Iterative reconstruction was utilized to minimize dose. IV contrast administered: 80 mL iohexoL (OMNIPAQUE) 350 mg iodine/mL injection COMPARISON: XR FOOT RIGHT AP LATERAL AND OBLIQUE 2025-09-18 14:34:30.000 FINDINGS: Osseous structures are unremarkable. There is mild diffuse soft tissue edema. There is a 1.6 x 0.6 x 1.4 cm mildly rim-enhancing subcutaneous fluid flexion at the inferior aspect of the distal fifth metatarsal. There is an additional subcutaneous rim-enhancing fluid collection at the base of the fifth metatarsal measuring roughly 2.1 x 1 x 0.7 cm. Procedure Note Isadora Mackay MD - 09/19/2025 HISTORY: swelling base of R 5th metatarsal, foot pain, difficultyambulating TECHNIQUE: CT Lower Extremity after administration of IV contrast.Multiplanar reconstructions were generated from the source data. Iterativereconstruction was utilized to minimize dose. IV contrast administered: 80 mL iohexoL (OMNIPAQUE) 350 mg iodine/mLinjection COMPARISON: XR FOOT RIGHT AP LATERAL AND OBLIQUE 2025-09-18 14:34:30.000 FINDINGS: Osseous structures are unremarkable. There is mild diffuse soft tissueedema. There is a 1.6 x 0.6 x 1.4 cm mildly rim-enhancing subcutaneousfluid flexion at the inferior aspect of the distal fifth metatarsal. Thereis an additional subcutaneous rim-enhancing fluid collection at the baseof the fifth metatarsal measuring roughly 2.1 x 1 x 0.7 cm. IMPRESSION: Multiple rim-enhancing subcutaneous fluid collections along the lateralright foot adjacent to the plantar aspect of the fifth metatarsal whichmay reflect abscesses or phlegmon . There is diffuse lower extremitytissue edema/cellulitis. [facility] Communications Center: Routine. Report initiated by: Chino Scruggs MD Reported and signed by: Isadora Mackay MD us Timoteo Rivera MD IMG CT ORDERABLES Final Resu lt * (ABNORMAL) Comprehensive metabolic panel (09/18/2025 6:05 PM EST) Sodium 141 136 - 144 mmol/L 09/18/2025 6:38 PM EST [facility] Potassium 3.4 3.3 - 5.3 mmol/L 09/18/2025 6:38 PM [facility] Chloride 103 98 - 107 mmol/L 09/18/2025 6:38 PM [facility] CO2 27 20 - 30 mmol/L 09/18/2025 6:38 PM [facility] Anion Gap 11 7 - 17 09/18/2025 6:38 PM [facility] Glucose 119(H) 70 - 100 mg/dL 09/18/2025 6:38 PM [facility] BUN 23(H) 6 - 20 mg/dL 09/18/2025 6:38 PM [facility] Creatinine 1.06 0.40 - 1.30 mg/dL 09/18/2025 6:38 PM [facility] Calcium 8.9 8.8 - 10.2 mg/dL 09/18/2025 6:38 PM [facility] BUN/Creatinine Ratio 21.7 8.0 - 23.0 09/18/2025 6:38 PM [facility] Total Protein 6.8 5.9 - 8.3 g/dL 025 6:38 PM [facility] Albumin 4.3 3.6 - 5.1 g/dL 09/18/2025 6:38 PM [facility] Total Bilirubin 0.7 <=1.2 mg/dL 09/18/20 25 6:38 PM [facility] Alkaline Phosphatase 106 9 - 122 U/L 09/18/2025 6:38 PM [facility] Alanine Aminotransferase (ALT) 29 9 - 59 U/L 09/18/2025 6:38 PM [facility] Comment:Calcium dobesilate c an cause artificially low ALT results at therapeutic concentrations Aspartate Aminotransferase (AST) 71(H) 10 - 35 U/L 09/18/2025 6:38 PM [facility] Globulin 2.5 2.0 - 3.9 g/dL 09/18/2025 6:38 PM [facility] A/G Ratio 1.7 1.0 - 2.2 09/18/2025 6:38 PM [facility] AST/ALT Ratio 2.4 Reference Range Not Established 09/18/2025 6:38 PM [facility] eGFR (Creatinine) >60 >=60 mL/min/1.73m2 09/18/2025 6:38 PM [facility] Comment: [facility] utilizes CKD-EPI Creatinine 2020 to report eGFR. Values < 60 mL/min/1.73 m2 may indicate CKD if present for more than three months AND creatinine is at steady state. The eGFR provides a rough estimate of kidney function. For further guidance, please refer to the CKD: Adult Contact Lens Molder Signature pathway. Creatinine Delta 09/18/20 6:38 PM [facility] Comment:No previous creatini ne <5.00 mg/dL is available within the previous 12 months to calculate a delta creatinine. Blood Venipuncture / Unknown 09/18/2025 6:05 PM EST 09/18/2025 6:05 PM EST us Timoteo Rivera MD LAB BLOOD ORDERABLES Final R esult Performing Organization Address [facility]/ZIP Co de Phone Number [address] [phone] * Sedimentation rate (ESR) (09/18/2025 6:05 PM EST) [facility] Sedimentation Rate (ESR) 5 0 - 20 mm/hr 09/18/2025 8:07 PM [facility] Blood Venipuncture / Unknown 09/18/2025 6:05 PM EST 09/18/2025 6:05 PM EST us Timoteo Rivera MD LAB BLOOD ORDERABLES Final R esult Performing Organization Address City/[facility]/ZIP Co de Phone Number [address] [phone] * Alcohol panel, GC (09/18/2025 6:05 PM EST) Methanol (GC) Not Detected Not Detected mg/dL 09/19/2025 12:11 AM [facility]IC[facility] Ethanol (GC) Not Detected Not Detected mg/dL 09/19/2025 12:11 AM [facility] MEDIC[facility] Isopropanol (GC) Not Detected Not Detected mg/dL 09/19/2025 12:11 AM [facility] Acetone (GC) Not Detected Not Detected mg/dL 09/19/2025 12:11 AM [facility] Blood Venipuncture / Unknown 09/18/2025 6:05 PM EST 09/18/2025 6:05 PM EST Narrative [facility] DEPARTMENT OF LABORATORY MEDICINE - 09/19/2025 12:11 AM EST This test was developed and its performance characteristics determined by [facility]. It has not been cleared by the FDA. The laboratory is regulated under CLIA as qualified to perform high-complexity testing. This test is used for clinical purposes. It should not be regarded as investigational or for research. Timoteo Rivera MD LAB BLOOD ORDERABLES Final R esult [facility] DEPARTMENT OF LABORATORY MEDICINE [address] [place] [address] * (ABNORMAL) Toxicology screen, serum (09/18/2025 6:05 PM EST) Salicylate Lvl <0.3(L) See Comment mg/dL 09/18/2025 6:38 PM [facility] Comment: Therapeutic Range: 3.0-10.0 mg/dL for anti-pyretic/analgesic 15.0-30.0 mg/dL for anti-inflammatory/rheumatic fever Acetaminophen Level <5(L) 10 - 30 ug/mL 09/18/2025 6:38 PM [facility] Ethanol <10 <10 mg/dL 09/18/2025 6:38 PM [facility] Blood Venipuncture / Unknown 09/18/2025 6:05 PM EST 09/18/2025 6:05 PM EST Timoteo Rivera MD LAB BLOOD ORDERABLES Final R esult [place] [phone], [facility] [phone] * (ABNORMAL) C-reactive protein (CRP) (09/18/2025 6:05 PM EST) CRP, High Sensitivity 3.5(H) See comment mg/L 09/18/2025 6:38 PM [facility] Comment: hs-CRP Risk According to AHA/CDC Guidelines (mg/L): <1.0 Lower relative cardiovascular risk. 1.0-3.0 Average relative cardiovascular risk. 3.1-10.0 Higher relative cardiovascular risk. Consider retesting in 1 to 2 weeks to exclude a benign transient elevation in the baseline CRP value secondary to infection or inflammation. >10.0 Persistent elevation, upon retesting, may be associated with infection and inflammation. Blood Venipuncture / Unknown 09/18/2025 6:05 PM EST 09/18/2025 6:05 PM EST us Timoteo Rivera MD LAB BLOOD ORDERABLES Final R esult [address] [phone] * Foot 3V Right (09/18/2025 2:42 PM EST) Anatomical Region Laterality Modality Foot, Ankle, Ortho Foot Right Computed Radiography 09/18/2025 2:57 PM EST Impressions 09/18/2025 3:01 PM EST Soft tissue swelling along the lateral aspect of the fifth metatarsal with no evidence of acute fracture or dislocation. Punctuate calcific density in the soft tissue along the dorsal aspect of the midfoot, only seen on the lateral view, nonspecific. [facility] Radiology Notify System Classification: Routine. Reported and signed by: Jackelyn Vail MD Narrative 09/18/2025 3:01 PM EST STUDY: XR FOOT RIGHT AP LATERAL AND OBLIQUE INDICATION: swelling, TTP base of 5th metatarsal COMPARISON: NONE FINDINGS/ Procedure Note Jackelyn Cabello MD - 09/18/2025 STUDY: XR FOOT RIGHT AP LATERAL AND OBLIQUE INDICATION: swelling, TTP base of 5th metatarsal COMPARISON: NONE FINDINGS/IMPRESSION: Soft tissue swelling along the lateral aspect of the fifth metatarsal withno evidence of acute fracture or dislocation. Punctuate calcific density in the soft tissue along the dorsal aspect ofthe midfoot, only seen on the lateral view, nonspecific. [facility] Radiology Notify System Classification: Routine. Reported and signed by: Jackelyn Vail MD Faizan Pete MD [facility] Final Result * CXR (09/18/2025 2:42 PM EST) Anatomical Region Laterality Modality Chest Computed Radiogr aphy 09/18/2025 2:44 PM EST Impressions 09/18/2025 2:51 PM EST No acute cardiothoracic abnormality. Please note that radiograph has limited sensitivity for evaluation of the groundglass opacities which can be seen in the setting of viral pneumonia. [facility] Radiology Notify System Classification: Routine. Report initiated by: Lang Damon MD Reported and signed by: Jackelyn Vail MD Narrative 09/18/2025 2:51 PM EST XR CHEST PA AND LATERAL INDICATION: cough, tactile fever at home, concern for PNA COMPARISON: None FINDINGS: The cardiomediastinal silhouette is normal. The lungs are clear. The pleural spaces are clear. There is no acute osseous injury. Procedure Note Jackelyn Cabello MD - 09/18/2025 XR CHEST PA AND LATERAL INDICATION: cough, tactile fever at home, concern for PNA COMPARISON: None FINDINGS: The cardiomediastinal silhouette is normal. The lungs are clear. The pleural spaces are clear. There is no acute osseous injury. IMPRESSION: No acute cardiothoracic abnormality. Please note that radiograph haslimited sensitivity for evaluation of the groundglass opacities which canbe seen in the setting of viral pneumonia. [facility] Radiology Notify System Classification: Routine. Report initiated by: Lang Damon MD Reported and signed by: Jackelyn Vail MD Faizan Pete MD [facility] Final Result * Symptomatic 4 Plex -Order only on patients highly likely to be admitted. (09/18/2025 2:08 PM EST) Influenza A Negative Negative 09/18/2025 3:14 PM [facility] Comment:Negative results do not preclude infection from influenza or other respiratory viruses and should not be used as the sole basis for treatment or management. Influenza may exhibit genomic variation among circulating and newly emerging strains that may lead to unexpected falsely negative results for some tests. For all respiratory pathogens, falsely negative results may also arise from poorly collected specimens. If concerns remain high, providers should contact the laboratory for potential testing by an alternative testing method and/or submit a new well-collected nasopharyngeal specimen. Influenza B Negative Negative 09/18/2025 3:14 PM [facility] Respiratory Syncytial Virus Negative Negative 09/18/2025 3:14 PM [facility] SARS-CoV-2 RNA (COVID-19) Negative Negative 09/18/2025 3:14 PM [facility] Comment:Test performance has not been evaluated in asymptomatic patients. Negative results do not preclude SARS-CoV-2, Influenza A, Influenza B and/or RSV infection. The results of these tests should not be used as the sole basis for diagnosis, treatment, or other patient management decisions. Viral NASOPHARYNGEAL STRUCTURE / Unknown Collection / Unknown 09/18/2025 2:08 PM EST 09/18/2025 2:29 PM EST Faizan Pete MD MICROBIOLOGY - GENERAL PATERSONRebekah [facility] Final Result Performing Organization Address City/State/[facility] Co de Phone Number [address] [phone] * Insert peripheral IV (09/18/2025 1:13 PM EST) Narrative Timoteo Rivera MD - 09/18/2025 1:13 PM EST Timoteo Rivera MD 09/21/2025 6:20 PM Insert peripheral IV Performed by: Ju Gibson DO Authorized by: Nathaly Botello MD Time out documented by nurse: no Time out unable to be performed due to emergent nature of procedure: No Timing: the time out is initiated prior to the beginning of the procedure: Yes Name of patient and medical record or stated and matches ID band or previously confirmed medical record number.: Yes Proceduralist states or confirms the procedure to be performed: Yes The procedural consent is used to verify the procedure to be performed and it matches the patient identifiers: Yes Site of procedure(s) (with laterality or level) is topically marked per policy and visible after draping: N/A (IF SITE NOT MARKED) Radiographic imaging is present or a laterality side/site band is present on patient and is accessible: N/A Indication: maintain venous access Preparation: Alcohol wipe Anesthesia: None Location: Right Basilic vein Catheter Size: 18 gauge Ultrasound Guided?: Yes Number of attempts: 2 Successful Placement: Yes Flush Type: Saline Dressing Type: Tegaderm IV CMS assessment: post-procedure distal perfusion normal us Nathaly Botello MD IV THERAPY ORDERABLES Leyla mccarty Result from Last 3 Months Insurance MEDICARE [id number] MEDICAID MEDICARE [id number] MEDICAID MEDICARE [id number] MEDICAID Advance Directives * Full Code (Latest Code Status on File) Date Activated Date Inactivated Comments 09/19/2025 1:03 AM 2025 6:09 PM Care Teams Mba Internship Relationship Specialty Start Date End Date No, Pcp (Do Not Change Name) PCP - General 09/18/25
--- OUTSIDE RECORDS SUMMARY | 2025-10-02 20:56 | XMS_ITS | Clinical Summary ---
Author Organization [facility] Address [address], [address] [place] [address] Care Team Providers Care Cementer Machine Applicator Name Role Phone Zuly Ashely D NUCLEAR PHYSICIAN - INTERACTIVE DEVELOPER Primary Care Provi gracie Allergies Active Allergy Reactions Criticality Noted Date Comments Coconut Fatty Acid Anaphylaxis,Hives High 12/10/2018 Fish Protein-Containing Drug Products Anaphylaxis,Hives High 12/10/2018 Pt states he no longer has this allergy Medications buPROPion (WELLBUTRIN) 75 MG tablet Take 75 mg by mouth daily Active buPROPion (WELLBUTRIN SR) 150 MG extended release tablet Take 150 mg by mouth daily Active hydrOXYzine HCl (ATARAX) 10 MG tablet Take 25 mg by mouth 3 times daily as needed Active traZODone (DESYREL) 150 MG tablet Take 150 mg by mouth Active risperiDONE (RISPERDAL) 2 MG tablet Take 1 tablet by mouth daily 30 tablet 5 Active gabapentin (NEURONTIN) 100 MG tablet Take 3 tablets by mouth 3 times daily for 14 days. 126 tablet 5 Active naproxen (NAPROSYN) 500 MG tablet Take 1 tablet by mouth 2 times daily as needed for Pain Take with plenty fluid and food 30 tablet 5 09/03/20 25 Discontinue d(Not A Current Medication) Active Problems Problem Noted Date Diagnosed Date Visit for wound care 02/02/2025 Assessment & Plan (02/02/2025 11:45 AM EDT): Wounds cleaned with [facility] [place], abx timur applied over R/L dorsal 5th mid-knuckle/MPJ - urged to pickling drum operator the oral ABX rx'd from ED on 03/25/25 - reminded this is at [facility] - pt reports intention to pick this up - reviewed the med (doxy) - avoid sun exposure, take with lots of water and food, take 12 hrs apart twice a day, and take full 10 day dosing - Urged follow up with us or ED/UC as needed - reviewed sxs of evolving infections. Assessment & Plan (02/02/2025 11:45 AM EDT): Sepsis 12/10/2018 Polysubstance abuse 12/10/2018 Bipolar affective disorder, rapid cycling 2018 Endocarditis 12/10/2018 IV drug user 12/10/2018 Encounters Date Type Department Care Team Description 09/03/2025 10:00 AM EDT Office Visit [facility] [address] [place] [phone] Bhakti Gupta FNP Hypertension, unspecified type (Primary Dx) 07/21/2025 4:12 AM EDT - 07/21/2025 5:14 AM EDT Emergency [facility] [address] [place] [phone] Kyaw Saldaña MD Dog bite of right hand, initial encounter (Primary Dx) Discharge Disposition: Home or Self Care 07/21/2025 1:00 AM EDT - 07/21/2025 1:33 AM EDT Emergency [facility] [address] [place] [phone] Discharge Disposition: LWBS before solution developer from Last 3 Months Immunizations Immunization Administration Dates Next Due Influenza, FLUARIX, FLULAVAL , FLUZONE, (age 6 mo+), AFLURIA, (age 3 y+), IM, Trivalent PF, 0.5mL 09/03/2025 TDaP, ADACEL (age 10y-64y), BOOSTRIX (age 10y+), IM, 0.5mL 01/23/2025 Family History Medical History Relation Name Comments No Known Problems Other Relation Name Status Comments Other Social History Tobacco Use Types Packs/Day Years Used Date Smoking Tobacco: Every Day Cigarettes Smokeless Tobacco: Never Alcohol Use Standard Drinks/Week Comments No 0 (1 standard drink = 0.6 oz pur e alcohol) AUDIT-C Answer Date Recorded Q1: How often do you have a drink containing alc ohol? 2-3 times a week 04/29/2025 Q2: How many drinks containi ng alcohol do you have on a typical day when you are drinking? 5 or 6 04/29/2025 Q3: How often do you have si x or more drinks on one occasion? Monthly 04/29/2025 Interpersonal Safety Domain Source: IP Abuse Scr eening Answer Date Recorded Physical abuse Denies 04/29/2025 Verbal abuse Denies 04/29/2025 Emotional abuse Denies 04/29/2025 Financial abuse Denies 04/29/2025 Sexual abuse Denies 04/29/2025 Sex and Gender Information Value Date Recorded Sex Assigned at Not on file Legal Sex Male 12:40 AM EST Gender Identity Not on file Sexual Orientation Not on file Last Filed Vital Signs Vital Sign Reading Time Taken Comments Blood Pressure 124/98 09/03/2025 10:50 AM EDT Pulse 60 09/03/2025 10:46 AM EDT Temperature 37.1 C (98.7 F) 07/21/2025 4:26 AM EDT Respiratory Rate 22 09/03/2025 10:4 6 AM EDT Oxygen Saturation 99% 07/21/2025 4:2 6 AM EDT Inhaled Oxygen Concentration - - Weight 75.8 kg (167 lb) 09/03/2025 10:5 0 AM EDT with clothes and sneakers on Height 172.7 cm (5' 8 ) 07/21/2025 4:26 AM EDT Body Mass Index 25.39 07/21/2025 4:26 AM EDT Plan of Treatment Health Maintenance Due Date Last Done Comments Varicella vaccine (2 of 2 - 2-dose childhood series) 1992 09/05/1991 Depression Monitoring 2000 HIV screen 2003 Hepatitis C screen 2006 Hepatitis A vaccine (1 of 2 - Risk 2-dose series) 2007 Hepatitis B vaccine (1 of 3 - 19+ 3-dose series) 2007 Pneumococcal 0-49 years Vaccine (1 of 2 - PCV) 2007 Diabetes screen 2023 Annual Wellness Visit (Medicare) 01/23/2025 COVID-19 Vaccine ( season) 2025 DTaP/Tdap/Td vaccine (6 - Td or Tdap) 01/23/2035 01/23/2025, 03/03/2010, 01/19/2004, Additional history exists Hib vaccine Completed 04/30/1990 Flu vaccine Completed 09/03/2025 HPV vaccine (No Doses Required) Completed Meningococcal (ACWY) vaccine Aged Out No longer eligible based on patient's age to complete this topic Meningococcal B vaccine Aged Out No l onger eligible based on patient's age to complete this topic Polio vaccine Aged Out No longer elig ible based on patient's age to complete this topic Procedures Procedure Name Priority Date/Time Associated Diagnosis Comments SPLINT APPLICATION Routine 07/21/2025 6: 00 AM EDT from Last 3 Months Results * Splint Application (07/21/2025 6:00 AM EDT) Narrative Kyaw Saldaña MD - 07/21/2025 6:00 AM EDT Kyaw Saldaña MD 07/21/2025 6:50 AM Splint Application Date/Time: 07/21/2025 6:00 AM Performed by: Kyaw Saldaña MD Authorized by: Kyaw Saldaña MD Consent: Consent obtained: Verbal Consent given by: Patient Risks discussed: Discoloration, numbness and pain Alternatives discussed: Alternative treatment and observation [place] protocol: Patient identity confirmed: Verbally with patient and arm band Pre-procedure details: Distal perfusion: distal pulses strong Procedure details: Location: Hand Hand location: R hand Strapping: yes Splint type: Volar short arm Supplies: Fiberglass Attestation: Splint applied and adjusted personally by me Post-procedure details: Distal neurologic exam: Normal Distal perfusion: distal pulses strong Procedure completion: Tolerated Kyaw Saldaña MD PROCEDURE/MINOR SURGICAL ORDERAB LES Final Result from Last 3 Months Insurance MEDICARE Advance Directives * Full Code (Latest Code Status on File) Date Activated Date Inactivated Comments 04/30/2025 7:00 AM 04/30/2025 7:29 PM Care Teams Cementer Machine Applicator Relationship Specialty Start Date End Date Ashely Caruso, NUCLEAR PHYSICIAN - INTERACTIVE DEVELOPER [address] [place] [phone] PCP - General Nurse Practitioner 09/03/25
--- OUTSIDE RECORDS SUMMARY | 2025-10-02 20:56 | XMS_ITS | Clinical Summary ---
Author Organization [facility] Address [address] [place] [address] Care Team Providers Care Sheriff Name Role Phone Ref, Hasnopcp Primary Care Provider Unavailabl e Allergies No known active allergies Medications * This document contains information received from the source organization and may not represent a complete record from that organization. No known medications Social History Tobacco Use Types Packs/Day Years Used Date Smoking Tobacco: Never Assessed Sex and Gender Information Value Date Recorded Sex Assigned at Male 05/11/2025 12:52 PM EDT Legal Sex Male 10:56 AM EDT Gender Identity Not on file Sexual Orientation Not on file Last Filed Vital Signs Vital Sign Reading Time Taken Comments Blood Pressure 120/71 05/11/2025 2:36 AM EDT Pulse 72 05/11/2025 2:36 AM EDT Temperature 36.1 C (97 F) 05/11/2025 2:36 AM EDT Respiratory Rate 19 05/11/2025 2:36 AM EDT Oxygen Saturation 97% 05/11/2025 2:36 AM EDT Inhaled Oxygen Concentration - - Weight 68 kg (150 lb) 05/11/2025 2:36 AM EDT Height - - Body Mass Index - - Plan of Treatment Health Maintenance Due Date Last Done Comments Hepatitis C Screening 1988 Medicare AWV 1989 Varicella Vaccines (1 of 2 - 13+ 2-dose series) 2001 Hepatitis B Vaccines (1 of 3 - 19+ 3-dose series) 2007 Alcohol/Substance Use Screening 11/05/2024 Depression Screening and Follow-Up 11/05/2024 Social Drivers of Health Annual Screening 11/05/2024 Influenza Vaccine (#1) 2025 , 12/04/2021, 10/28/2018 COVID-19 Vaccine (2 - 2024-2 6 season) 2025 04/07/2021 DTaP,Tdap,and Td Vaccines (3 - Td or Tdap) 01/23/2035 01/23/2025, 03/03/2010 Pneumococcal Vaccine: Pediatric (0-5 Years) and At-Risk Patients (6-50 Years) Aged Out 10/28/2018 No longer eligible based on patient's age to complete this topic HIV Screening Completed 10/30/2024 Insurance MEDICARE Care Teams Sheriff Relationship Specialty Start Date End Date Ref, Clem DO NOT EDIT THIS RECORD VIA PROVIDER ON THE FLY PCP - General Business Process Consultant 03/22/25
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
--- OUTSIDE RECORDS SUMMARY | 2025-10-02 20:57 | XMS_ITS | Clinical Summary ---
Author Organization [employer] [facility] Address [address] [place] [address] Care Team Providers Care Title Clerk Automobile Name Role Phone None Primary Care Provider Unavailabl e Allergies No known active allergies Medications gabapentin (NEURONTIN) 600 MG tablet Take 600 mg by mouth 3 (three) times daily Active naltrexone (VIVITROL) injection Inject into the muscle once Active Active Problems No known active problems Social History Tobacco Use Types Packs/Day Years Used Date Smoking Tobacco: Every Day Cigarettes Alcohol Use Standard Drinks/Week Comments No 0 (1 standard drink = 0.6 oz pur e alcohol) Sex and Gender Information Value Date Recorded Sex Assigned at Not on file Legal Sex Male 9:39 PM EDT Gender Identity Male 02/11/2025 5:08 AM EDT Sexual Orientation Straight 02/11/2025 5: 08 AM EDT Last Filed Vital Signs Vital Sign Reading Time Taken Comments Blood Pressure 117/92 02/11/2025 2:52 AM EDT Pulse 58 02/11/2025 2:52 AM EDT Temperature 36.1 C (96.9 F) 02/11/2025 2:52 AM EDT Respiratory Rate 17 02/11/2025 2:52 AM EDT Oxygen Saturation 97% 02/11/2025 2:52 AM EDT Inhaled Oxygen Concentration - - Weight - - Height - - Body Mass Index - - Plan of Treatment Health Maintenance Due Date Last Done Comments Contraceptive Care Screening 1988 HIV SCREENING 2001 HEALTH CARE PROXY 2006 HEP C SCREEN 2006 LIPID SCREENING 2006 PNEUMOCOCCAL VACCINE SERIES (1 of 2 - PCV) 2007 PHYSICAL EXAM 2010 HPV VACCINE SERIES (1 - 3-dose SCDM series) 2015 COVID-19 Vaccine (2 - 2024- season) 2025 04/07/2021 TETANUS VACCINE (2 - Td or Tdap) 01/23/2035 01/23/2025 ZOSTER VACCINE (1 of 2) 2038 INFLUENZA VACCINE Completed 08/19/2025, , 12/04/2021, Additional history exists MENINGOCOCCAL (MCV4) VACCINE SERIES Aged Out No longer eligible based on patient's age to complete this topic MENINGOCOCCAL B VACCINE SERIES Aged Out No longer eligible based on patient's age to complete this topic Insurance MEDICARE - [facility] Address: [facility] [employer] [facility] [place] [address] [facility] [place] [id number] Care Teams Title Clerk Automobile Relationship Specialty Start Date End Date None PCP - General 02/03/25
[2025-10-02 21:39] VITALS: BP 111/65; PULSE 76; RESP 16; TEMP 36.7; O2SAT 96
[2025-10-02 23:05] VITALS: BP 111/65; PULSE 76; RESP 16; TEMP 36.7; O2SAT 96
== END 2025-10-02 22:10 | disposition other institution (70) ==
PROVIDERS: Emergency Provider Student in an Organized Health Care Education/Training Program
DX: R07.89 Other chest pain (principal); R06.02 Shortness of breath; F15.10 Other stimulant abuse, uncomplicated
CPT/HCPCS: 36415; 71046; 80053; 83735; 83880; 84484; 85025; 93005; 96374; 99284; 99285; J1885

== ENCOUNTER → 2025-10-02 19:45 | Outpatient (BNV) | payer MEDICARE, MEDICAID, SELFPAY | PROVIDERS: Emergency Provider Student in an Organized Health Care Education/Training Program; Visit Provider Internal Medicine | DX: R07.9 Chest pain, unspecified (principal) | CPT/HCPCS: 93010 ==

== ENCOUNTER → 2025-10-02 20:17 | Outpatient (BNV) | payer MEDICARE, MEDICAID, SELFPAY | PROVIDERS: Emergency Provider Student in an Organized Health Care Education/Training Program; Visit Provider Radiology Diagnostic Radiology | DX: R07.9 Chest pain, unspecified (principal) | CPT/HCPCS: 71046 ==